=== PATIENT | female | born 1950 | race Caucasian/White ===

== ENCOUNTER 2017-03-08 10:40 | Emergency (ER) | payer MEDICARE ==
--- NOTE | 2017-03-08 11:29 | ERPHSYRPT ---
- History of Present Illness Time Seen by Provider: 03/08/17 11:23 Source: patient, family Exam Limitations: no limitations Patient Subjective Stated Complaint: PT REPORTS UPPER BACK PAIN RADIATING TO CHEST BEGINNING 0630 THIS AM IN THE SHOWER-REPORTS SOB AT TIME BUT NOW IT'S PAINFUL RESP-DENIES DIAPHOSIS Triage Nursing Assessment: PT PALE WARM ET [id number] BREATH SOUNDS NOTED WHILE PT UNABLE TO STOP TALKING-PT VERY TALKATIVE WITH EASE Physician History: Patient is a 66-year-old female with her complaining of an onset of mid to upper back pain while in the shower this morning that began at 6:30 AM or 5 hours ago. It was painful for taking deep breaths. Now it is hurting when she breathes normally. The pain has wrapped around from the back to her front chest. She denies nausea or vomiting. Her past medical history is significant for a cardiac pacer which the patient states is there because she needed something for her heart when she had a bleeding ulcer. Other past medical history is bleeding ulcer, cholecystectomy, appendectomy, hysterectomy, tonsillectomy, total left knee replacement, and eye surgery. Timing/Duration: today, hour(s) (5) Method of Injury: unknown Quality: sharp Back Pain Location: T-spine, paraspinous muscles Severity of Pain-Max: moderate Severity of Pain-Current: moderate Modifying Factors: Improves With: nothing Associated Symptoms: denies symptoms Previous symptoms: no prior history Allergies/Adverse Reactions: Sulfa (Sulfonamide Antibiotics) Allergy (Intermediate, Verified 03/08/17 10:59) morphine Allergy (Unknown, Verified 03/08/17 10:58) Home Medications: Dicyclomine HCl 20 mg [Bentyl 20 mg] 20 mg PO DAILY 03/08/17 [History] Pantoprazole 20 mg [Protonix 20MG Tablet] 20 mg PO DAILY 03/08/17 [History ] Hx Tetanus, Diphtheria Vaccination/Date Given: Yes Hx Influenza Vaccination/Date Given: Yes Hx Pneumococcal Vaccination/Date Given: Yes Immunizations Up to Date: Yes - Review of Systems Constitutional: No Fever, No Chills Eyes: No Symptoms Ears, Nose, & Throat: No Symptoms Respiratory: No Cough, No Dyspnea Cardiac: No Chest Pain, No Edema, No Syncope Abdominal/Gastrointestinal: No Abdominal Pain, No Nausea, No Vomiting, No Diarrhea Genitourinary Symptoms: No Dysuria Musculoskeletal: Back Pain Skin: No Rash Neurological: No Dizziness, No Focal Weakness, No Sensory Changes Psychological: No Symptoms Endocrine: No Symptoms Hematologic/Lymphatic: No Symptoms Immunological/Allergic: No Symptoms All Other Systems: Reviewed and Negative - Past Medical History Pertinent Past Medical History: Yes Neurological History: TIA ENT History: Cataracts, Other Cardiac History: Myocardial Infarction ([place]), Other Respiratory History: Asthma, COPD Endocrine Medical History: No Pertinent History Musculoskeletal History: Arthritis, Osteoporosis GI Medical History: Ulcer History: Other Psycho-Social History: Anxiety, Depression Female Reproductive Disorders: Abnormal Uterine Bleeding Other Medical History: PACEMAKER - Past Surgical History Past Surgical History: Yes Neuro Surgical History: No Pertinent History Cardiac: No Pertinent History, Pacemaker, Other Respiratory: No Pertinent History, Other Gastrointestinal: Appendectomy, Cholecystectomy Musculoskeletal: Orthopedic Surgery, Other Female Surgical History: Hysterectomy, Other Other Surgical History: EYE SURGERY BILAT KNEE SURGERY HAND SURGERY. BERIATRIC SURGERY. bladder tie up x 2. sinus surgery. tonsilectomy. left knee surgery. carpal tunnel surgery. carpel tunnel x 2. patient states she has in surgery before, and has problems waking up from anesthesia - Social History Smoking Status: Never smoker Exposure to second hand smoke: No Drug Use: none Patient Lives Alone: No Significant Family History: no pertinent family hx - Female History Hx Now: No - Nursing Vital Signs Temperature: 98.4 F Temperature Source: Oral Pulse Rate: 60 Respiratory Rate: 20 Pain Intensity: 10 - Physical Exam General Appearance: no apparent distress, alert Eye Exam: PERRL/EOMI, eyes nml inspection Ears, Nose, Throat Exam: normal ENT inspection Neck Exam: normal inspection, non-tender, supple, full range of motion, No meningismus, No midline tenderness Respiratory Exam: normal breath sounds, chest tenderness, lungs clear, No respiratory distress Cardiovascular Exam: regular rate/rhythm, normal heart sounds Gastrointestinal Exam: soft, No tenderness, No mass Pelvic Exam: not done Rectal Exam: not done Back Exam: decreased range of motion, other (Examination of the thorax reveals tenderness to palpation of the mid upper left paraspinous muscle and tenderness of the musculature from the mid back around the left side to the anterior left chest. 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 Comparative CXR 10/29/14.) Ordered Tests: Active Orders 24 hr Category Date Time Status EKG-ER Only STAT Care 03/08/17 11:30 Active IV Insertion STAT Care 03/08/17 11:30 Active CHEST 2 VIEWS (PA AND LAT) Stat Exams 03/08/17 11:30 Taken CBC W DIFF Stat Lab 03/08/17 11:10 Completed CMP Stat Lab 03/08/17 11:10 Completed TROPONIN Stat Lab 03/08/17 11:10 Completed Medication Summary Discontinued Medications Generic Name Dose Route Start Last Admin Trade Name Freq PRN Reason Stop Dose Admin Diazepam 10 mg 03/08/17 11:31 03/08/17 11:38 Valium 10 Mg/2 Ml Syringe IV 03/08/17 11:32 10 mg STAT ONE Administration Diazepam Confirm 03/08/17 11:35 Valium 10 Mg/2 Ml Syringe Administered 03/08/17 11:36 Dose 10 mg .ROUTE .STK-MED ONE Lab/Rad Data: Laboratory Result Diagrams 03/08/17 11:10 03/08/17 11:10 Laboratory Results 03/08/17 03/08/17 Range/Units 11:10 11:10 WBC 7.1 (4.0-10.5) K/mm3 RBC 4.23 (4.1-5.4) M/mm3 Hgb 13.3 (12.0-16.0) gm/dl Hct 40.7 (35-47) % MCV 96.2 (78-100) fl MCH 31.4 (26-32) pg MCHC 32.7 (32-36) g/dl RDW 14.1 H (11.5-14.0) % Plt Count 237 (150-450) K/mm3 MPV 10.2 H (6-9.5) fl Gran % 58.5 (36.0-66.0) % Lymphocytes % 29.0 (24.0-44.0) % Monocytes % 8.3 (0.0-12.0) % Eosinophils % 3.8 (0.00-5.0) % Basophils % 0.4 (0.0-0.4) % Basophils # 0.03 (0-0.4) Sodium 141 (136-145) mEq/L Potassium 4.1 (3.5-5.1) mEq/L Chloride 104 (98-107) mEq/L Carbon Dioxide 27.6 (21-32) mEq/L Anion Gap 13.5 (5-15) MEQ/L BUN 16 (9-20) mg/dL Creatinine 0.99 (0.55-1.30) mg/dl Estimated GFR > 60 ML/MIN Glucose 77 (70-110) MG/DL Calcium 9.1 (8.5-10.1) mg/dL Total Bilirubin 0.4 (0.2-1.0) mg/dL AST 25 (15-37) U/L ALT 31 (12-78) U/L Alkaline Phosphatase 129 H (46-116) U/L Troponin I < 0.017 (0.000-0.056) ng/ml Serum Total Protein 6.7 (6.4-8.2) gm/dL Albumin 3.7 (3.4-5.0) g/dL - Progress Progress: improved, pain not gone completely Counseled pt/family regarding: lab results, diagnosis, rad results - Departure Time of Disposition: 12:55 Departure Disposition: Home Clinical Impression: Musculoskeletal pain Condition: Stable Critical Care Time: No Additional Instructions: You have musculoskeletal pain. The blood tests did not show any problems with your heart. You were given Valium 10 mg IV in the ER with minimal results. You have been given prescriptions for tramadol 50 mg every 4 hours as needed and Flexeril 5 mg every 8 hours as needed. Apply heat or ice to the painful areas. Follow up tomorrow if no improvement. Prescriptions: Cyclobenzaprine HCl [Flexeril] 5 mg PO Q8H PRN PRN #10 tablet PRN Reason: Pain Tramadol HCl 50 mg PO Q4-6HPRN PRN #10 tablet PRN Reason: Pain
[2017-03-08] MEDS ORDERED: VALIUM 10 MG/2 ML SYRINGE IV ONE (11:31)
[2017-03-08] MEDS ORDERED: VALIUM 10 MG/2 ML SYRINGE ONE (11:35)
[2017-03-08 11:37] LABS: BASOPHIL % 0.4 % (0.0-0.4); Eosinophil % 3.8 % (0.00-5.0); Granulocytes % 58.5 % (36.0-66.0); Mean Cell Volume 96.2 fl (78-100); Mean Corpuscular Hemoglobin 31.4 pg (26-32); Mean Platelet Volume 10.2 fl (6-9.5); Monocytes % 8.3 % (0.0-12.0); Platelet Count 237 K/mm3 (150-450); Red Blood Count 4.23 M/mm3 (4.1-5.4); Red Cell Distribution Width 14.1 % (11.5-14.0); White Blood Count 7.1 K/mm3 (4.0-10.5)
[2017-03-08 11:49] LABS: ALBUMIN 3.7 g/dL (3.4-5.0); ALKALINE PHOSPHATASE 129 U/L (46-116); ANION GAP 13.5 MEQ/L (5-15); BILIRUBIN,TOTAL 0.4 mg/dL (0.2-1.0); BLOOD UREA NITROGEN 16 mg/dL (9-20); CHLORIDE 104 mEq/L (98-107); Carbon Dioxide 27.6 mEq/L (21-32); Glucose 77 MG/DL (70-110); Potassium 4.1 mEq/L (3.5-5.1); SGOT/AST 25 U/L (15-37); SGPT/ALT 31 U/L (12-78); SODIUM 141 mEq/L (136-145); Total Protein 6.7 gm/dL (6.4-8.2)
[2017-03-08 11:58] LABS: TROPONIN < 0.017 ng/ml (0.000-0.056)
[2017-03-08 12:21] VITALS: PULSE 60
[2017-03-08 12:37] VITALS: O2SAT 99
[2017-03-08 12:57] VITALS: BP 131/69
--- NOTE | 2017-03-08 21:50 | XRAY ---
Indication: Chest pain and dizziness. Comparison: October 29, 2014. PA/lateral chest again demonstrates normal heart and lungs with left-sided dual-lead pacemaker. Bony thorax intact again with mild osteopenia and degenerative changes. Impression: Stable nonacute chest with chronic features.
== END 2017-03-08 13:06 | disposition home or self-care (01) ==
LOC: ED 10:40
DX: M79.1 Myalgia (principal); M54.6 Pain in thoracic spine; J45.909 Unspecified asthma, uncomplicated; J44.9 Chronic obstructive pulmonary disease, unspecified; M19.90 Unspecified osteoarthritis, unspecified site; M81.0 Age-related osteoporosis without current pathological fracture; Z86.73 Personal history of transient ischemic attack (TIA), and cerebral infarction without residual deficits; F41.8 Other specified anxiety disorders; Z79.899 Other long term (current) drug therapy
CPT/HCPCS: 36000; 36415; 71020; 80053; 84484; 85025; 93005; 96374; 99283; J3360

== ENCOUNTER 2019-01-21 09:23 | Emergency (ER) | payer MEDICARE | END 2019-01-21 12:00 | disposition home or self-care (01) | LOC: ED 09:23 ==

== ENCOUNTER 2021-04-25 05:48 | Emergency (ER) | payer MEDICARE ==
--- NOTE | 2021-04-25 06:27 | ERPHSYRPT ---
- History of Present Illness Historian: patient Exam Limitations: no limitations Patient Subjective Stated Complaint: Pt c/o pain to lower back, RLQ pain and rt hip pain down her leg and then generalized pain from head to toe. Triage Nursing Assessment: pt c/o pain to lower back, RLQ pain and rt hip pain down rt leg but also c/o generalized body pain from head to toe. Abd soft with active bs x4 quad, tender on palpation to RLQ. Timing/Duration: yesterday Activities at Onset: none Quality: sharpness, stabbing Abdominal Pain Onset Location: RLQ Pain Radiation: RLQ Severity of Pain-Max: moderate Severity of Pain-Current: moderate Modifying Factors: Improves With: nothing, urinating Previous symptoms: no prior history Hx Tetanus, Diphtheria Vaccination/Date Given: Yes Hx Influenza Vaccination/Date Given: Yes Hx Pneumococcal Vaccination/Date Given: Yes Immunizations Up to Date: Yes <BRIJESH GOEL - Last Filed: 04/25/21 06:56> <JULIANO ELLER - Last Filed: 04/25/21 10:18> - History of Present Illness Time Seen by Provider: 04/25/21 06:15 Physician History: This is a 70-year-old white female with a history of COPD, asthma, GERD, arrhythmia, ulcer disease, pacemaker placed and hypertension, who presents with first lower lumbar pain followed by radiation and now more localization the right lower quadrant. The pain is significant enough to keep her awake during the night. She states she is never had anything like this before. She has had no nausea vomiting or diarrhea. She has no chest pain and no shortness of breath. The pain is sharp and now nonradiating. Patient has had an appendectomy, cholecystectomy, total abdominal hysterectomy and bilateral salpingo-oophorectomy. She has had bladder suspension surgery twice. She has had urinary tract infections in the past but none in quite a while. (BRIJESH GOEL) Allergies/Adverse Reactions: Sulfa (Sulfonamide Antibiotics) Allergy (Intermediate, Verified 04/25/21 06:13) morphine Allergy (Unknown, Verified 04/25/21 06:13) Home Medications: Pantoprazole 20 mg [Protonix 20MG Tablet] 20 mg PO DAILY 03/08/17 [History] Metoprolol Succinate 25 mg Xl* [Toprol-Xl 25MG Tablets] 50 mg PO BID 01/21/19 [History] estradioL [Estradiol] 2.5 mg PO DAILY 01/21/19 [History] Travel Risk - International Travel Have you traveled outside of the country in past 3 weeks: No If Yes, where;: N - Coronavirus Screening Are you exhibiting any of the following symptoms?: No Close contact with a COVID-19 positive Pt in past 14-21 Days: No - Vaccine Status Have you recieved a Covid-19 vaccination: No Adon: Moderna - Vaccination Dates Date of 2cond Vaccination (if applicable): 03/23/21 <BRIJESH GOEL - Last Filed: 04/25/21 06:56> - Review of Systems Constitutional: No Symptoms Eyes: No Symptoms Ears, Nose, & Throat: No Symptoms Respiratory: No Symptoms Cardiac: No Symptoms Abdominal/Gastrointestinal: Abdominal Pain (Right lower quadrant), No Nausea, No Vomiting, No Diarrhea, No Constipation Genitourinary Symptoms: No Symptoms Musculoskeletal: No Symptoms Skin: No Symptoms Neurological: No Symptoms Psychological: No Symptoms Endocrine: No Symptoms Hematologic/Lymphatic: No Symptoms Immunological/Allergic: No Symptoms All Other Systems: Reviewed and Negative <BRIJESH GOEL - Last Filed: 04/25/21 06:56> - Past Medical History Pertinent Past Medical History: Yes Neurological History: TIA ENT History: Cataracts, Glaucoma, Other Cardiac History: Arrhythmia, Other Respiratory History: Asthma, COPD Endocrine Medical History: No Pertinent History Musculoskeletal History: Osteoporosis GI Medical History: Ulcer History: Other Psycho-Social History: Anxiety, Depression Female Reproductive Disorders: Abnormal Uterine Bleeding Other Medical History: 2 TIAs, seizures, Pacemaker, cardiac arrest, OA and buldging discs in the neck and Lower back, sciatica on rt and lt. - Past Surgical History Past Surgical History: Yes Neuro Surgical History: No Pertinent History Cardiac: Pacemaker, Other Respiratory: No Pertinent History, Other Gastrointestinal: Appendectomy, Cholecystectomy Musculoskeletal: Orthopedic Surgery, Other Female Surgical History: Hysterectomy, Other Other Surgical History: EYE SURGERY BILAT KNEE SURGERY HAND SURGERY. BARIATRIC SURGERY. bladder tie up x 2. sinus surgery. tonsilectomy. left knee surgery. carpal tunnel surgery. carpel tunnel x 2. patient states she has in surgery before, and has problems waking up from anesthesia - Social History Smoking Status: Never smoker Exposure to second hand smoke: Yes Drug Use: none Patient Lives Alone: No Significant Family History: no pertinent family hx - Female History Hx Now: No <BRIJESH GOEL - Last Filed: 04/25/21 06:56> - Physical Exam General Appearance: no apparent distress, alert, anxiety Eye Exam: PERRL/EOMI, eyes nml inspection Ears, Nose, Throat Exam: normal ENT inspection, moist mucous membranes Neck Exam: normal inspection, non-tender, supple, full range of motion Respiratory Exam: normal breath sounds, lungs clear, No chest tenderness, No respiratory distress Cardiovascular Exam: regular rate/rhythm, normal heart sounds, normal peripheral pulses Gastrointestinal/Abdomen Exam: soft, normal bowel sounds, tenderness (Right lower quadrant), guarding, No rebound Pelvic Exam: not done Rectal Exam: not done Back Exam: normal inspection, normal range of motion, vertebral tenderness, other, No CVA tenderness Extremity Exam: normal inspection, normal range of motion, pelvis stable Neurologic Exam: alert, oriented x 3, cooperative, 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, normal mood/affect, nml cerebellar function, nml station & gait, sensation nml Skin Exam: normal color, warm, dry Lymphatic Exam: No adenopathy SpO2 Interpretation: normal SpO2: 99 O2 Delivery: Room Air <BRIJESH GOEL - Last Filed: 04/25/21 06:56> - Nursing Vital Signs Nursing Vital Signs: Initial Vital Signs Temperature 97.9 F 04/25/21 05:57 Pulse Rate 66 04/25/21 05:57 Respiratory Rate 20 04/25/21 05:57 Blood Pressure 162/81 04/25/21 05:57 O2 Sat by Pulse Oximetry 99 04/25/21 05:57 Pain Scale Pain Intensity [] 10 Pain Intensity 4 - Course Nursing assessment & vital signs reviewed: Yes <BRIJESH GOEL - Last Filed: 04/25/21 06:56> - Radiology Exams L-Spine X-ray Interpretation: Teleradiologist Report (Stable minimized multilevel endplate spurring and minimal L4-L5 broad-based disc bulge with bilateral degenerative facet arthropathy. Normal lumbar alignment with vertebral body height and disc height maintained. No compression fractures or subluxations.) - CT Exams Abdomen/Pelvis CT Interpretation: Tele-radiologist Report (Stable right renal cyst, small ventral hernia and chronic bony findings. Right renal cyst. 3.4 cm. Degenerative changes throughout the spine. Stable small midline ventral hernia with herniating omental fat and small bowel loop. ) <JULIANO ELLER - Last Filed: 04/25/21 10:18> Ordered Tests: Active Orders 24 hr Category Date Time Status IV Insertion STAT Care 04/25/21 06:38 Active ABDOMEN AND PELVIS W/0 CONTRAS [CT] Stat Exams 04/25/21 06:38 Completed RECONSTRUCTION [CT] Stat Exams 04/25/21 08:00 Completed AMYLASE Stat Lab 04/25/21 06:50 Completed CBC W DIFF Stat Lab 04/25/21 06:50 Completed CMP Stat Lab 04/25/21 06:50 Completed CULTURE,URINE Stat Lab 04/25/21 07:54 Received LIPASE Stat Lab 04/25/21 06:50 Completed Lactic Acid Stat Lab 04/25/21 06:38 Completed UA W/RFX UR CULTURE Stat Lab 04/25/21 07:54 Ordered Medication Summary Generic Name Dose Route Start Last Admin Trade Name Freq PRN Reason Stop Dose Admin Ceftriaxone Sodium/Dextrose 1 g in 50 mls @ 100 mls/hr 04/25/21 09:52 Rocephin 1 Gm-D5w 50 Ml Bag IV 04/25/21 10:21 STAT ONE Discontinued Medications Generic Name Dose Route Start Last Admin Trade Name Freq PRN Reason Stop Dose Admin Dexamethasone 10 mg 04/25/21 08:15 04/25/21 08:06 Decadron 4 Mg PO 04/25/21 08:16 10 mg STAT ONE Administration Ketorolac Tromethamine 30 mg 04/25/21 07:57 04/25/21 08:05 Toradol 30 Mg Injection IV 04/25/21 07:58 30 mg STAT ONE Administration Ketorolac Tromethamine Confirm 04/25/21 08:03 Toradol 30 Mg Injection Administered 04/25/21 08:04 Dose 30 mg .ROUTE .STK-MED ONE Lab/Rad Data: Laboratory Result Diagrams 04/25/21 06:50 04/25/21 06:50 Laboratory Results 04/25/21 04/25/21 04/25/21 Range/Units 07:54 06:50 06:50 WBC 7.9 (4.0-10.5) K/mm3 RBC 4.03 L (4.1-5.4) M/mm3 Hgb 12.6 (12.0-16.0) gm/dl Hct 39.0 (35-47) % MCV 96.8 (78-100) fl MCH 31.3 (26-32) pg MCHC 32.3 (32-36) g/dl RDW 13.2 (11.5-14.0) % Plt Count 165 (150-450) K/mm3 MPV 9.7 (7.5-11.0) fl Gran % 71.2 H (36.0-66.0) % Eos # (Auto) 0.15 (0-0.5) Absolute Lymphs (auto) 1.42 (1.0-4.6) Absolute Monos (auto) 0.68 (0.0-1.3) Lymphocytes % 18.0 L (24.0-44.0) % Monocytes % 8.6 (0.0-12.0) % Eosinophils % 1.9 (0.00-5.0) % Basophils % 0.3 (0.0-0.4) % Absolute Granulocytes 5.62 (1.4-6.9) Basophils # 0.02 (0-0.4) Sodium 139 (137-145) mmol/L Potassium 4.5 (3.5-5.1) mmol/L Chloride 105 (98-107) mmol/L Carbon Dioxide 30 (22-30) mmol/L Anion Gap 8.1 (5-15) MEQ/L BUN 11 (7-17) mg/dL Creatinine 1.12 H (0.52-1.04) mg/dL Estimated GFR 51.4 ML/MIN Glucose 99 (74-106) mg/dL Lactic Acid (0.4-2.0) Calcium 9.3 (8.4-10.2) mg/dL Total Bilirubin 0.80 (0.2-1.3) mg/dL AST 43 H (14-36) U/L ALT 41 H (0-35) U/L Alkaline Phosphatase 151 H (38-126) U/L Serum Total Protein 6.3 (6.3-8.2) g/dL Albumin 3.8 (3.5-5.0) g/dL Amylase 58 (30-110) U/L Lipase 91 (23-300) U/L Urine Color YELLOW (YELLOW) Urine Appearance SLIGHTLY CLOUDY (CLEAR) Urine pH 5.0 (5-6) Ur Specific Chambers 1.014 (1.005-1.025) Urine Protein NEGATIVE (Negative) Urine Ketones NEGATIVE (NEGATIVE) Urine Blood NEGATIVE (0-5) Gavin/ul Urine Nitrite NEGATIVE (NEGATIVE) Urine Bilirubin NEGATIVE (NEGATIVE) Urine Urobilinogen NEGATIVE (0-1) mg/dL Ur Leukocyte Esterase SMALL (NEGATIVE) Urine WBC (Auto) 26-50 (0-5) /HPF Urine RBC (Auto) 0-2 (0-2) /HPF U Epithel Cells (Auto) RARE (FEW) /HPF Urine Bacteria (Auto) FEW (NEGATIVE) /HPF Urine Mucus (Auto) SLIGHT (NEGATIVE) /HPF Urine Culture Reflexed YES (NO) Urine Glucose NEGATIVE (NEGATIVE) mg/dL 04/25/ Range/Units 06:38 WBC (4.0-10.5) K/mm3 RBC (4.1-5.4) M/mm3 Hgb (12.0-16.0) gm/dl Hct (35-47) % MCV (78-100) fl MCH (26-32) pg MCHC (32-36) g/dl RDW (11.5-14.0) % Plt Count (150-450) K/mm3 MPV (7.5-11.0) fl Gran % (36.0-66.0) % Eos # (Auto) (0-0.5) Absolute Lymphs (auto) (1.0-4.6) Absolute Monos (auto) (0.0-1.3) Lymphocytes % (24.0-44.0) % Monocytes % (0.0-12.0) % Eosinophils % (0.00-5.0) % Basophils % (0.0-0.4) % Absolute Granulocytes (1.4-6.9) Basophils # (0-0.4) Sodium (137-145) mmol/L Potassium (3.5-5.1) mmol/L Chloride (98-107) mmol/L Carbon Dioxide (22-30) mmol/L Anion Gap (5-15) MEQ/L BUN (7-17) mg/dL Creatinine (0.52-1.04) mg/dL Estimated GFR ML/MIN Glucose (74-106) mg/dL Lactic Acid 0.7 (0.4-2.0) Calcium (8.4-10.2) mg/dL Total Bilirubin (0.2-1.3) mg/dL AST (14-36) U/L ALT (0-35) U/L Alkaline Phosphatase (38-126) U/L Serum Total Protein (6.3-8.2) g/dL Albumin (3.5-5.0) g/dL Amylase (30-110) U/L Lipase (23-300) U/L Urine Color (YELLOW) Urine Appearance (CLEAR) Urine pH (5-6) Ur Specific Chambers (1.005-1.025) Urine Protein (Negative) Urine Ketones (NEGATIVE) Urine Blood (0-5) Gavin/ul Urine Nitrite (NEGATIVE) Urine Bilirubin (NEGATIVE) Urine Urobilinogen (0-1) mg/dL Ur Leukocyte Esterase (NEGATIVE) Urine WBC (Auto) (0-5) /HPF Urine RBC (Auto) (0-2) /HPF U Epithel Cells (Auto) (FEW) /HPF Urine Bacteria (Auto) (NEGATIVE) /HPF Urine Mucus (Auto) (NEGATIVE) /HPF Urine Culture Reflexed (NO) Urine Glucose (NEGATIVE) mg/dL - Progress Progress: unchanged Counseled pt/family regarding: lab results, diagnosis, rad results <BRIJESH GOEL - Last Filed: 04/25/21 06:56> <JULIANO ELLER - Last Filed: 04/25/21 10:18> - Progress Progress Note: 04/25/21 06:56 I transferred care of this patient to Dr. Eller at shift change. I reviewed the patient history, pending laboratory and radiographic work-up with him. He accepts patient care. He will make final disposition of this patient. (BRIJESH GOEL) Patient endorsed to Dr. Eller at approximately [address] Eller advised to follow- up on labs and pending CT abdomen pelvis. CT abdomen pelvis reveals incidental right renal cyst and small fatty ventral hernia. Otherwise no acute process. I have requested 3D reconstruction views of the lumbar spine. After examining the patient it appeared that patient may have a radiculopathy. CT 3D reconstruction of lumbar spine reveals endplate spurring and minimal L4-L5 broad-based disc bulge with bilateral degenerative facet arthropathy. It is not clear whether this would cause patient symptoms. However patient reassessed. Pain significantly improved. Patient states he is ready for discharge. Urine still pending at this time. 04/25/21 09:48 04/25/21 09:56 Urinalysis reveals a pyuria. We will treat patient for urinary tract infection. Patient received a 1 g dose of Rocephin. A prescription for Keflex forwarded to patient's pharmacy. Toradol prescription provided. Cultures pending. Patient agrees to follow-up with Dr. Rodrigues next Thursday or Thursday after antibiotic has been given a chance to work. Patient will call today for follow- up appointment. Plan of care discussed with patient. She agrees to follow-up as discussed. Patient feels much better. Pain significantly improved. Patient states he is ready for discharge. Will discharge at this time. (JULIANO ELLER) - Departure Departure Disposition: Home Critical Care Time: No <BRIJESH GOEL - Last Filed: 04/25/21 06:56> <JULIANO ELLER - Last Filed: 04/25/21 10:18> - Departure Clinical Impression: Abdominal pain, Renal cyst, Aortoiliac calcifications, Ventral hernia, Arthritis of spine, L4-L5 broad-based disc bulge, Lumbar facet arthropathy, Pyuria, Urinary tract infection Condition: Stable Referrals: LORENZA RODRIGUES MD [Primary Care Provider] - Additional Instructions: Discharge/Care Plan DAREN NELSON was seen on 04/25/21 in the Emergency Room. The patient was counseled regarding Diagnosis,Lab results, Imaging studies, need for follow up and when to return to the Emergency Room. Prescriptions given: Discharge Note I have spoken with the patient and/or caregivers. I have explained the patient's condition, diagnosis and treatment plan based on the information available to me at this time. I have answered the patient's and/or caregiver's questions and addressed any concerns. The patient and/or caregivers have as good understanding of the patient's diagnosis, condition and treatment plan as can be expected at this point. The vital signs have been stable. The patient's condition is stable and appropriate for discharge from the emergency department. The patient will pursue further outpatient evaluation with the primary care physician or other designated or consulting physician as outlined in the discharge instructions. The patient and/or caregivers are agreeable to this plan of care and follow-up instructions have been explained in detail. The patient and/or caregivers have received these instruction. The patient/and or caregivers are aware that any significant change in condition or worsening of symptoms should prompt an immediate return to this or the closest emergency department or call 911. Prescriptions: Cephalexin Mh 500 mg [Keflex 500 mg] 500 mg PO TID 7 Days #21 capsule Ketorolac Tromethamine [Toradol] 10 mg PO TID 5 Days #15 tablet
[2021-04-25 06:58] LABS: Absolute Neutrophil Ct (ANC) 5.62 (1.4-6.9); BASOPHIL % 0.3 % (0.0-0.4); Basophil (Absolute #) 0.02 (0-0.4); Eosinophil % 1.9 % (0.00-5.0); Eosinophil (Absolute #) 0.15 (0-0.5); Hemoglobin 12.6 gm/dl (12.0-16.0); Lymphocyte (Absolute #) 1.42 (1.0-4.6); Mean Cell Volume 96.8 fl (78-100); Mean Corpuscular Hemoglobin 31.3 pg (26-32); Mean Corpuscular Hgb Concent. 32.3 g/dl (32-36); Mean Platelet Volume 9.7 fl (7.5-11.0); Monocyte (Absolute #) 0.68 (0.0-1.3); Monocytes % 8.6 % (0.0-12.0); Neutrophil % 71.2 % (36.0-66.0); Platelet Count 165 K/mm3 (150-450); Red Blood Count 4.03 M/mm3 (4.1-5.4); Red Cell Distribution Width 13.2 % (11.5-14.0); White Blood Count 7.9 K/mm3 (4.0-10.5)
[2021-04-25 07:05] LABS: ALBUMIN 3.8 g/dL (3.5-5.0); ANION GAP 8.1 MEQ/L (5-15); BILIRUBIN,TOTAL 0.8 mg/dL (0.2-1.3); Calcium 9.3 mg/dL (8.4-10.2); Creatinine 1 1.12 mg/dL (0.52-1.04); EST GLOMERULAR FILTRATION RATE 51.4 ML/MIN; Potassium 4.5 mmol/L (3.5-5.1); Total Protein 6.3 g/dL (6.3-8.2)
[2021-04-25] MEDS ORDERED: TORAdol 30 mg Injection IV ONE (07:57)
[2021-04-25] MEDS ORDERED: DECADRON 10MG INJ. PO ONE (07:57)
[2021-04-25] MEDS ORDERED: TORAdol 30 mg Injection ONE (08:03)
[2021-04-25] MEDS ORDERED: Decadron 4 MG PO ONE (08:15)
--- NOTE | 2021-04-25 09:16 | XRAY ---
Indication: Right lower quadrant and right low back pain. Multiple contiguous images obtained through the abdomen and pelvis without contrast. Comparison: May 10, 2018. Lung bases again demonstrates mild bibasilar fibrosis/scarring. No infiltrate or effusion. Heart is not enlarged again with pacer leads. Again previous gastric bypass surgery, cholecystectomy, appendectomy, and hysterectomy. Noncontrasted stomach and bowel loops nonobstructed. Radiopacity in the right hemicolon presumed ingested medication, bismuth, or barium. No free fluid/air. Stable 3.4 cm right lower pole renal cyst. Remaining liver, pancreas, spleen, adrenal glands, kidneys, ureters, and bladder are unremarkable for noncontrast exam. Stable minimal aortoiliac calcifications without AAA. Osseous structures intact again with minimal degenerative changes throughout the spine. Stable small midline ventral hernia was slightly herniating omental fat and small bowel loop. Impression: 1. Stable right renal cyst, small ventral hernia, and chronic bony findings. 2. Remaining CT abdomen/pelvis without contrast exam is again negative.
--- NOTE | 2021-04-25 09:20 | XRAY ---
Indication: Low back pain. Sagittal, coronal, and axial reconstructed images of the lumbar spine obtained using the raw data from the CT abdomen/pelvis of the same day. Comparison: September 09, 2018. Axial images again negative for acute fracture, suspicious bony lesions, or spinal canal stenosis. Stable minimal/mild multilevel endplate spurring and minimal L4-L5 broad-based disc bulge with bilateral degenerative facet arthropathy. Sagittal and coronal reformatted images again demonstrates normal lumbar alignment with vertebral body heights/disc spaces maintained. No acute compression fracture or subluxation. CT abdomen/pelvis reported separately. Impression: Stable multilevel degenerative changes again without large disc herniation or canal stenosis.
[2021-04-25 09:42] VITALS: O2SAT 98
[2021-04-25 09:44] LABS: Appearance SLIGHTLY CLOUDY (CLEAR); Bacteria FEW /HPF (NEGATIVE); Bilirubin NEGATIVE (NEGATIVE); Blood NEGATIVE Ery/ul (0-5); Epithelial Cells RARE /HPF (FEW); Glucose NEGATIVE (NEGATIVE); Ketones NEGATIVE (NEGATIVE); Leukocyte Esterase SMALL (NEGATIVE); Mucus SLIGHT /HPF (NEGATIVE); Nitrite NEGATIVE (NEGATIVE); Protein,Urine Dip NEGATIVE (Negative); RBC 0-2 /HPF (0-2); Specific Gravity 1.014 (1.005-1.025); Urobilinogen NEGATIVE mg/dL (0-1); WBC 26-50 /HPF (0-5)
[2021-04-25] MEDS ORDERED: ROCEPHIN 1 Gm-D5w 50 ml Bag** 1 G/50 ML IVPB IV ONE ×2 (09:52→09:54)
[2021-04-25 10:51] VITALS: BP 138/60; PULSE 68
== END 2021-04-25 10:52 | disposition home or self-care (01) ==
LOC: ED 05:48
DX: R10.9 Unspecified abdominal pain (principal); N28.1 Cyst of kidney, acquired; I70.0 Atherosclerosis of aorta; K43.9 Ventral hernia without obstruction or gangrene; M47.9 Spondylosis, unspecified; R82.81 Pyuria; N39.0 Urinary tract infection, site not specified
CPT/HCPCS: 36000; 36415; 74176; 76376; 80053; 81001; 82150; 83605; 83690; 85025; 87077; 87086; 87186; 96365; 96374; 99284; J0696; J1885; A9270-GY

== ENCOUNTER 2021-05-29 16:02 | Emergency (ER) | payer MEDICARE ==
--- NOTE | 2021-05-29 17:54 | ERPHSYRPT ---
- History of Present Illness Time Seen by Provider: 05/29/21 16:25 Source: patient Exam Limitations: no limitations Patient Subjective Stated Complaint: fall today on sidewalk Triage Nursing Assessment: pt to ED c/o fall today. pt tripped on sidewalk today and landed on R side and back. now c/o back pain and R side trunk pain 9/10. pt tearful and slow to move when getting into bed. ambulatory with no assist with steady gate but slow d/t pain. did not hit head or lose consciousness during fall. Physician History: Patient is a 71-year-old female presents to our emergency department for evaluation of right rib pain in the left buttock pain. Patient states she was at home walking outdoors when she tripped on her sidewalk. Patient states she was wearing flip-flops which caused her to trip. Patient fell towards her right ribs and on her left buttock. Pain described as an ache that is localized to her right rib and left buttock. No radiation. Pain reproduced with movement and palpation. Pain improves with rest. No BHT or LOC. No neck pain. Cervical spine cleared clinically. Pain rated 9 out of 10. However patient declined pain medication because she is comfortable at rest. Patient advised to inform us if she changes her mind and pain medication. Patient voices no other complaints concerns at this time. Occurred: just prior to arrival Reason for Fall: tripped Injuries/Pain Location: chest Loss of Consciousness: no loss of consciousness Quality: aching Severity of Pain-Max: moderate Severity of Pain-Current: mild Modifying Factors: Improves With: movement Associated Symptoms (Fall): denies symptoms, No chest pain, No dizziness, No headache, No lightheadedness, No muscle spasms, No nausea, No neck pain, No ringing in ears, No seizures, No shortness of breath, No slurred speech, No trouble walking, No vomiting, No vision changes Allergies/Adverse Reactions: Sulfa (Sulfonamide Antibiotics) Allergy (Intermediate, Verified 05/29/21 16:27) morphine Allergy (Unknown, Verified 05/29/21 16:27) Home Medications: Pantoprazole 20 mg [Protonix 20MG Tablet] 20 mg PO DAILY 03/08/17 [History] Metoprolol Succinate 25 mg Xl* [Toprol-Xl 25MG Tablets] 50 mg PO BID 01/21/19 [History] estradioL [Estradiol] 2.5 mg PO DAILY 01/21/19 [History] Hx Tetanus, Diphtheria Vaccination/Date Given: Yes Hx Influenza Vaccination/Date Given: Yes Hx Pneumococcal Vaccination/Date Given: Yes Immunizations Up to Date: Yes Travel Risk - International Travel Have you traveled outside of the country in past 3 weeks: No - Coronavirus Screening Are you exhibiting any of the following symptoms?: No Close contact with a COVID-19 positive Pt in past 14-21 Days: No - Vaccine Status Have you recieved a Covid-19 vaccination: 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 - Vaccination Dates Date of 2cond Vaccination (if applicable): 03/23/21 - Review of Systems Constitutional: No Symptoms, No Fever, No Chills Eyes: No Symptoms Ears, Nose, & Throat: No Symptoms Respiratory: No Symptoms, No Cough, No Dyspnea Cardiac: No Symptoms, No Chest Pain, No Edema, No Syncope Abdominal/Gastrointestinal: No Symptoms, No Abdominal Pain, No Nausea, No Vomiting, No Diarrhea Genitourinary Symptoms: No Symptoms, No Dysuria Musculoskeletal: No Symptoms, No Back Pain, No Neck Pain Skin: No Symptoms, No Rash Neurological: No Symptoms, No Dizziness, No Focal Weakness, No Sensory Changes Psychological: No Symptoms Endocrine: No Symptoms Hematologic/Lymphatic: No Symptoms Immunological/Allergic: No Symptoms All Other Systems: Reviewed and Negative - Past Medical History Pertinent Past Medical History: Yes Neurological History: TIA ENT History: Cataracts, Glaucoma, Other Cardiac History: Arrhythmia, Other Respiratory History: Asthma, COPD Endocrine Medical History: No Pertinent History Musculoskeletal History: Osteoporosis GI Medical History: Ulcer History: Other Psycho-Social History: Anxiety, Depression Female Reproductive Disorders: Abnormal Uterine Bleeding Other Medical History: 2 TIAs, seizures, Pacemaker, cardiac arrest, OA and buldging discs in the neck and Lower back, sciatica on rt and lt. - Past Surgical History Past Surgical History: Yes Neuro Surgical History: No Pertinent History Cardiac: Pacemaker, Other Respiratory: No Pertinent History, Other Gastrointestinal: Appendectomy, Cholecystectomy Musculoskeletal: Joint Replacement, Orthopedic Surgery, Other Female Surgical History: Hysterectomy, Other Other Surgical History: EYE SURGERY L KNEE SURGERY/replacement HAND SURGERY. BARIATRIC SURGERY. bladder tie up x 2. sinus surgery. tonsilectomy. left knee surgery. carpal tunnel surgery. carpel tunnel x 2. patient states she has in surgery before, and has problems waking up from anesthesia - Social History Smoking Status: Never smoker Exposure to second hand smoke: Yes Drug Use: none Patient Lives Alone: No Significant Family History: no pertinent family hx - Female History Hx Now: No - Nursing Vital Signs Nursing Vital Signs: Initial Vital Signs Temperature 96.8 F 05/29/21 16:18 Pulse Rate 60 05/29/21 16:18 Respiratory Rate 18 05/29/21 16:18 Blood Pressure 157/83 05/29/21 16:18 O2 Sat by Pulse Oximetry 98 05/29/21 16:18 Pain Scale Pain Intensity 8 - Salome Coma Score Best Eye Response (Salome): (4) open spontaneously Best Verbal Response (Salome): (5) oriented Best Motor Response (Salome): (6) obeys commands Salome Total: 15 - Physical Exam General Appearance: no apparent distress, alert, other (Patient has pain at her right ribs with movement. Patient has pain on the left buttock but is sitting comfortably.) Head Injury: no evidence of injury, No active bleeding, No Levy's Sign, No contusions Eye Exam: PERRL/EOMI, eyes nml inspection, No scleral icterus, No pale conjunctivae ENT Exam: airway nml, evidence of ENT injury, No dental injury Neck Exam: supple, trachea midline, full range of motion, normal alignment, normal inspection, No tenderness Respiratory/Chest Exam: chest tenderness, normal breath sounds, other (To right ribs 5 6 and 7 laterally. No pain at the anterior lower ribs. No pain at the right upper quadrant or left upper quadrant.), No respiratory distress Cardiovascular Exam: normal heart sounds, regular rate/rhythm Gastrointestinal Exam: soft, No tenderness, No distention, No guarding, No ecchymosis Genitalia Exam: normal genital exam Back Exam: normal inspection, No vertebral tenderness Extremity Exam: normal inspection, normal range of motion, pelvis stable, No deformities Peripheral Pulses: dorsalis-pedis (R): 2+, dorsalis-pedis (L): 2+ Neurologic Exam: alert, oriented x 3, cooperative, sensation nml, No motor deficits Skin Exam: normal color, warm, dry SpO2 Interpretation: normal SpO2: 95 O2 Delivery: Room Air - Course Nursing assessment & vital signs reviewed: Yes EKG Interpreted by Me: RATE (60 paced rhythm. AG similar to the previous EKG performed on 2018.) - Radiology Exams Ribs X-ray Interpretation: Teleradiologist Report (Comparison. Negative ribs no fractures.) Chest X-ray Interpretation: Interpreted by me (Heart and lungs with left pacemaker observed. Thorax intact. Mild osteopenia. No acute cardiopulmonary process.) Pelvis X-ray Interpretation: Interpreted by me (Katerin, no fractures or dislocations. No soft tissue abnormalities. Chronic changes) Ordered Tests: Active Orders 24 hr Category Date Time Status EKG-ER Only STAT Care 05/29/21 17:27 Active CHEST 1 VIEW (PORTABLE) Stat Exams 05/29/21 17:25 Taken PELVIS (1 OR 2 VIEWS) Stat Exams 05/29/21 17:27 Taken RIBS UNILATERAL Stat Exams 05/29/21 17:25 Taken Medication Summary Discontinued Medications Generic Name Dose Route Start Last Admin Trade Name Freq PRN Reason Stop Dose Admin Hydrocodone Bitart/Acetaminophen 1 tab 05/29/21 18:40 05/29/21 18:42 Frederick 5/325 Mg PO 05/29/21 18:41 1 tab STAT ONE Administration Hydrocodone Bitart/Acetaminophen Confirm 05/29/21 18:42 Frederick 5/325 Mg Administered 05/29/21 18:43 Dose 1 tab .ROUTE .STK-MED ONE - Progress Progress: improved Progress Note: Patient reassessed. She feels well. Pain significantly improved. X-rays are negative for fractures dislocations. Patient pain significantly improved with Frederick, we will give patient several Frederick pills for home. Patient agrees to follow-up with her primary care doctor within 48 hours for reevaluation. 05/29/21 19:23 Counseled pt/family regarding: lab results, diagnosis, need for follow-up, rad results - Departure Clinical Impression: Osteopenia, Fall, Rib contusion, Contusion, buttock Condition: Stable Critical Care Time: No Referrals: LORENZA NOYOLA MD [Primary Care Provider] - Additional Instructions: Discharge/Care Plan DAREN NELSON was seen on 05/29/21 in the Emergency Room. The patient was counseled regarding Diagnosis,Lab results, Imaging studies, need for follow up and when to return to the Emergency Room. Prescriptions given: Discharge Note I have spoken with the patient and/or caregivers. I have explained the patient's condition, diagnosis and treatment plan based on the information available to me at this time. I have answered the patient's and/or caregiver's questions and addressed any concerns. The patient and/or caregivers have as good understanding of the patient's diagnosis, condition and treatment plan as can be expected at this point. The vital signs have been stable. The patient's condition is stable and appropriate for discharge from the emergency department. The patient will pursue further outpatient evaluation with the primary care physician or other designated or consulting physician as outlined in the discharge instructions. The patient and/or caregivers are agreeable to this plan of care and follow-up instructions have been explained in detail. The patient and/or caregivers have received these instruction. The patient/and or caregivers are aware that any significant change in condition or worsening of symptoms should prompt an immediate return to this or the closest emergency department or call 911.
[2021-05-29] MEDS ORDERED: NORCO 5/325 MG PO ONE ×2 (18:40→19:25)
[2021-05-29] MEDS ORDERED: NORCO 5/325 MG ONE ×2 (18:42→19:28)
[2021-05-29 19:25] VITALS: BP 147/72; PULSE 69
[2021-05-29 19:27] VITALS: O2SAT 95
--- NOTE | 2021-05-30 08:36 | XRAY ---
Indication: Pain following fall. Comparison: None 2 view right ribs negative for acute fracture, suspicious bony lesions, or soft tissue abnormalities. Age related osteopenia. Chest reported separately.
--- NOTE | 2021-05-30 08:38 | XRAY ---
Indication: Pain following fall. Comparison: None AP pelvis demonstrates mild osteopenia, mild lower lumbar degenerative spondylosis, small bilateral superior acetabular spurring, mild scattered fecal debris, left mid abdomen suture material, and pelvic surgical clips. No other bony, articular, or soft tissue abnormalities.
--- NOTE | 2021-05-30 08:46 | XRAY ---
Indication: Right-sided pain following fall. Comparison: August 13, 2020. Portable chest again demonstrates normal heart and lungs with incidental left pacemaker/leads. Bony thorax intact again with mild osteopenia and degenerative changes. No new/acute findings.
== END 2021-05-29 19:36 | disposition home or self-care (01) ==
LOC: ED 16:02
DX: M85.80 Other specified disorders of bone density and structure, unspecified site (principal); S20.219A Contusion of unspecified front wall of thorax, initial encounter; S30.0XXA Contusion of lower back and pelvis, initial encounter; W01.0XXA Fall on same level from slipping, tripping and stumbling without subsequent striking against object, initial encounter; Y93.01 Activity, walking, marching and hiking; Y92.480 Sidewalk as the place of occurrence of the external cause; Z79.899 Other long term (current) drug therapy; J44.9 Chronic obstructive pulmonary disease, unspecified; Z93.0 Tracheostomy status; Z95.0 Presence of cardiac pacemaker; M81.0 Age-related osteoporosis without current pathological fracture
CPT/HCPCS: 71045; 71100; 72170; 93005; 99284; A9270-GY

== ENCOUNTER 2022-04-06 00:25 | Emergency (ER) | payer MEDICARE ==
[2022-04-06] MEDS ORDERED: Hydromorphone 1 mg/ml Injection IV ONE ×3 (00:43→04:27)
[2022-04-06] MEDS ORDERED: Zofran 4 MG/2 ML VIAL IV ONE (00:43)
--- NOTE | 2022-04-06 00:46 | ERPHSYRPT ---
- History of Present Illness Time Seen by Provider: 04/06/22 00:31 Historian: patient Exam Limitations: no limitations Physician History: 71-year-old female presented in the ER with chief complaint of generalized abdominal pain. Patient reports it started around suppertime with pain on the right side then across abdomen with some radiation to the back moderate to jorge re sharp without any significant aggravating or relieving factors. Denies associated nausea vomiting diarrhea. Did have a bowel movement this morning. Took Gas-X at home which does not seem working. Timing/Duration: yesterday, constant, gradual onset, worse Activities at Onset: rest Quality: sharpness Abdominal Pain Onset Location: generalized abdomen Pain Radiation: no radiation Severity of Pain-Max: severe Severity of Pain-Current: severe Modifying Factors: Improves With: nothing Associated Symptoms: denies symptoms Previous symptoms: no prior history Allergies/Adverse Reactions: Sulfa (Sulfonamide Antibiotics) Allergy (Intermediate, Verified 04/06/22 00:49) morphine Allergy (Unknown, Verified 04/06/22 00:49) Home Medications: Pantoprazole 20 mg [Protonix 20MG Tablet] 40 mg PO DAILY 03/08/17 [History] estradioL [Estradiol] 0.5 mg PO DAILY 01/21/19 [History] Amox Tr/Potass Clav. 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 - Vaccination Dates Date of 2cond Vaccination (if applicable): 03/23/21 - Review of Systems Constitutional: No Symptoms Eyes: No Symptoms Ears, Nose, & Throat: No Symptoms Respiratory: No Symptoms Cardiac: No Symptoms Abdominal/Gastrointestinal: Abdominal Pain Genitourinary Symptoms: No Symptoms Musculoskeletal: No Symptoms Skin: No Symptoms Neurological: No Symptoms Psychological: No Symptoms Endocrine: No Symptoms Hematologic/Lymphatic: No Symptoms - Past Medical History Pertinent Past Medical History: Yes Neurological History: TIA ENT History: Cataracts, Glaucoma, Other Cardiac History: Arrhythmia, Other Respiratory History: Asthma, COPD Endocrine Medical History: No Pertinent History Musculoskeletal History: Osteoporosis GI Medical History: Ulcer History: Other Psycho-Social History: Anxiety, Depression Female Reproductive Disorders: Abnormal Uterine Bleeding Other Medical History: 2 TIAs, seizures, Pacemaker, cardiac arrest, OA and buldging discs in the neck and Lower back, sciatica on rt and lt. - Past Surgical History Past Surgical History: Yes Neuro Surgical History: No Pertinent History Cardiac: Pacemaker, Other Respiratory: No Pertinent History, Other Gastrointestinal: Appendectomy, Cholecystectomy Musculoskeletal: Joint Replacement, Orthopedic Surgery, Other Female Surgical History: Hysterectomy, Other Other Surgical History: EYE SURGERY L KNEE SURGERY/replacement HAND SURGERY. BARIATRIC SURGERY. bladder tie up x 2. sinus surgery. tonsilectomy. left knee surgery. carpal tunnel surgery. carpel tunnel x 2. patient states she has in surgery before, and has problems waking up from anesthesia - Social History Smoking Status: Never smoker Exposure to second hand smoke: Yes Drug Use: none Patient Lives Alone: No Significant Family History: no pertinent family hx - Nursing Vital Signs Nursing Vital Signs: Initial Vital Signs Temperature 97.8 F 04/06/22 00:36 Pulse Rate 62 04/06/22 00:36 Respiratory Rate 16 04/06/22 00:36 Blood Pressure 144/90 04/06/22 00:36 O2 Sat by Pulse Oximetry 98 04/06/22 00:36 Pain Scale Pain Intensity 9 - Physical Exam General Appearance: no apparent distress, alert Eye Exam: PERRL/EOMI Ears, Nose, Throat Exam: normal ENT inspection Neck Exam: normal inspection, supple, full range of motion Respiratory Exam: normal breath sounds, lungs clear Cardiovascular Exam: regular rate/rhythm, normal heart sounds Gastrointestinal/Abdomen Exam: soft, normal bowel sounds, tenderness Back Exam: normal inspection, normal range of motion Extremity Exam: normal inspection, normal range of motion Neurologic Exam: alert, oriented x 3, cooperative Skin Exam: normal color SpO2 Interpretation: normal SpO2: 96 O2 Delivery: Room Air Ordered Tests: Active Orders 24 hr Category Date Time Status IV Insertion STAT Care 04/06/22 00:43 Active NPO (ED) STAT Care 04/06/22 00:43 Active ABDOMEN AND PELVIS W/0 CONTRAS [CT] Stat Exams 04/06/22 00:43 Taken CBC W DIFF Stat Lab 04/06/22 00:52 Completed CMP Stat Lab 04/06/22 00:52 Completed LIPASE Stat Lab 04/06/22 00:52 Completed Lactic Acid Stat Lab 04/06/22 04:35 Completed TROPONIN Q3H Lab 04/06/22 00:52 Completed TROPONIN Q3H Lab 04/06/22 03:58 Completed TROPONIN Q3H Lab 04/06/22 06:45 Ordered TROPONIN Q3H Lab 04/06/22 09:45 Ordered TROPONIN Q3H Lab 04/06/22 12:45 Ordered UA W/RFX CULTURE Stat Lab 04/06/22 Ordered Medication Summary Generic Name Dose Route Start Last Admin Trade Name Freq PRN Reason Stop Dose Admin Sodium Chloride 1,000 mls @ 125 mls/hr 04/06/22 02:30 04/06/22 02:43 Sodium Chloride 0.9% 1000 Ml IV 05/06/22 02:29 125 mls/hr .Q8H JOIE Administration Discontinued Medications Generic Name Dose Route Start Last Admin Trade Name Freq PRN Reason Stop Dose Admin Hydromorphone HCl 0.5 mg 04/06/22 00:43 04/06/22 00:54 Hydromorphone 1 Mg/1ml Inj 1 Mg/Ml Syringe IV 04/06/22 00:44 0.5 mg STAT ONE Administration Hydromorphone HCl Confirm 04/06/22 00:52 Hydromorphone 1 Mg/1ml Inj 1 Mg/Ml Syringe Administered 04/06/22 00:53 Dose 1 mg .ROUTE .STK-MED ONE Hydromorphone HCl 0.5 mg 04/06/22 02:19 04/06/22 02:42 Hydromorphone 1 Mg/1ml Inj 1 Mg/Ml Syringe IV 04/06/22 02:20 0.5 mg STAT ONE Administration Hydromorphone HCl Confirm 04/06/22 02:39 Hydromorphone 1 Mg/1ml Inj 1 Mg/Ml Syringe Administered 04/06/22 02:40 Dose 1 mg .ROUTE .STK-MED ONE Hydromorphone HCl Confirm 04/06/22 04:21 Hydromorphone 1 Mg/1ml Inj 1 Mg/Ml Syringe Administered 04/06/22 04:22 Dose 1 mg .ROUTE .STK-MED ONE Ondansetron HCl 4 mg 04/06/22 00:43 04/06/22 00:54 Ondansetron Hcl 4 Mg/2 Ml Vial IV 04/06/22 00:44 4 mg STAT ONE Administration Ondansetron HCl Confirm 04/06/22 00:51 Ondansetron Hcl 4 Mg/2 Ml Vial Administered 04/06/22 00:52 Dose 4 mg .ROUTE .STK-MED ONE Lab/Rad Data: Laboratory Result Diagrams 04/06/22 00:52 04/06/22 00:52 Laboratory Results 04/06/22 04/06/22 04/06/22 Range/Units 04:35 03:58 00:52 WBC (4.0-10.5) x10^3/uL RBC (4.1-5.4) x10^6/uL Hgb (12.0-16.0) g/dL Hct (35-47) % MCV (78-100) fL MCH (26-32) pg MCHC (32-36) g/dL RDW (11.5-14.0) % Plt Count (150-450) x10^3/uL MPV (7.5-11.0) fL Gran % (36.0-66.0) % Immature Gran % (Auto) (0.00-0.4) % Nucleat RBC Rel Count (0.00-0.1) % Eos # (Auto) (0-0.5) x10^3/uL Immature Gran # (Auto) (0.00-0.03) x10^3u/L Absolute Lymphs (auto) (1.0-4.6) x10^3/uL Absolute Monos (auto) (0.0-1.3) x10^3/uL Absolute Nucleated RBC (0.00-0.01) x10^3u/L Lymphocytes % (24.0-44.0) % Monocytes % (0.0-12.0) % Eosinophils % (0.00-5.0) % Basophils % (0.0-0.4) % Absolute Granulocytes (1.4-6.9) x10^3/uL Basophils # (0-0.4) x10^3/uL Sodium (137-145) mmol/L Potassium (3.5-5.1) mmol/L Chloride (98-107) mmol/L Carbon Dioxide (22-30) mmol/L Anion Gap (5-15) MEQ/L BUN (7-17) mg/dL Creatinine (0.52-1.04) mg/dL Estimated GFR ML/MIN Glucose (74-106) mg/dL Lactic Acid 1.0 (0.4-2.0) Calcium (8.4-10.2) mg/dL Total Bilirubin (0.2-1.3) mg/dL AST (14-36) U/L ALT (0-35) U/L Alkaline Phosphatase (38-126) U/L Troponin I < 0.012 < 0.012 (0.000-0.034) ng/mL Serum Total Protein (6.3-8.2) g/dL Albumin (3.5-5.0) g/dL Lipase (23-300) U/L 04/06/22 04/06/22 Range/Units 00:52 00:52 WBC 8.9 (4.0-10.5) x10^3/uL RBC 4.30 (4.1-5.4) x10^6/uL Hgb 13.7 (12.0-16.0) g/dL Hct 41.7 (35-47) % MCV 97.0 (78-100) fL MCH 31.9 (26-32) pg MCHC 32.9 (32-36) g/dL RDW 13.1 (11.5-14.0) % Plt Count 235 (150-450) x10^3/uL MPV 10.0 (7.5-11.0) fL Gran % 62.1 (36.0-66.0) % Immature Gran % (Auto) 0.3 (0.00-0.4) % Nucleat RBC Rel Count 0.0 (0.00-0.1) % Eos # (Auto) 0.18 (0-0.5) x10^3/uL Immature Gran # (Auto) 0.03 (0.00-0.03) x10^3u/L Absolute Lymphs (auto) 2.46 (1.0-4.6) x10^3/uL Absolute Monos (auto) 0.65 (0.0-1.3) x10^3/uL Absolute Nucleated RBC 0.00 (0.00-0.01) x10^3u/L Lymphocytes % 27.8 (24.0-44.0) % Monocytes % 7.3 (0.0-12.0) % Eosinophils % 2.0 (0.00-5.0) % Basophils % 0.5 (0.0-0.4) % Absolute Granulocytes 5.49 (1.4-6.9) x10^3/uL Basophils # 0.04 (0-0.4) x10^3/uL Sodium 139 (137-145) mmol/L Potassium 4.8 (3.5-5.1) mmol/L Chloride 100 (98-107) mmol/L Carbon Dioxide 30 (22-30) mmol/L Anion Gap 13.9 (5-15) MEQ/L BUN 19 H (7-17) mg/dL Creatinine 1.19 H (0.52-1.04) mg/dL Estimated GFR 47.8 ML/MIN Glucose 100 (74-106) mg/dL Lactic Acid (0.4-2.0) Calcium 10.3 H (8.4-10.2) mg/dL Total Bilirubin 0.60 (0.2-1.3) mg/dL AST 34 (14-36) U/L ALT 30 (0-35) U/L Alkaline Phosphatase 111 (38-126) U/L Troponin I (0.000-0.034) ng/mL Serum Total Protein 7.0 (6.3-8.2) g/dL Albumin 4.3 (3.5-5.0) g/dL Lipase 164 (23-300) U/L - Progress Progress: improved, pain not gone completely, re-examined Progress Note: 04/06/22 02:22 She is given symptomatic treatment for pain, on reevaluation feeling better but still has discomfort. Has normal white count, grossly unremarkable chemistries, CT showed small bowel obstruction with a transition point in the mid abdomen distal to the jejunojejunostomy. Patient does have history of bariatric surgery with [facility]лен[facility]-en-[facility] at [place]. She is not nauseated or vomiting and does not require an NG intubation. We will keep her n.p.o., hydration and [place] transfer center is called. 04/06/22 03:31 I have spoken with Dr. Chaney internal medicine and then with Dr. Knight general surgery, reviewed history and work-up, patient is excepted per general surgery. Plan discussed with patient to understand and agrees with it. Discussed with Dr.: Other Counseled pt/family regarding: lab results, diagnosis, rad results - Departure Departure Disposition: Transfer Clinical Impression: Small bowel obstruction Condition: Stable Critical Care Time: No Referrals: JOHANNA LOVE NP [Primary Care Provider] - Follow up/PCP as directed
[2022-04-06] MEDS ORDERED: Zofran 4 MG/2 ML VIAL ONE (00:51)
[2022-04-06] MEDS ORDERED: Hydromorphone 1 mg/ml Injection ONE ×4 (00:52→07:01)
[2022-04-06 00:55] LABS: Absolute Neutrophil Ct (ANC) 5.49 x10^3/uL (1.4-6.9); Basophil (Absolute #) 0.04 x10^3/uL (0-0.4); Eosinophil (Absolute #) 0.18 x10^3/uL (0-0.5); Hematocrit 41.7 % (35-47); Hemoglobin 13.7 g/dL (12.0-16.0); Lymphocyte (Absolute #) 2.46 x10^3/uL (1.0-4.6); Lymphocytes % 27.8 % (24.0-44.0); Mean Corpuscular Hemoglobin 31.9 pg (26-32); Mean Corpuscular Hgb Concent. 32.9 g/dL (32-36); Monocyte (Absolute #) 0.65 x10^3/uL (0.0-1.3); Monocytes % 7.3 % (0.0-12.0); Neutrophil % 62.1 % (36.0-66.0); Platelet Count 235 x10^3/uL (150-450); Red Cell Distribution Width 13.1 % (11.5-14.0); White Blood Count 8.9 x10^3/uL (4.0-10.5)
[2022-04-06 01:07] LABS: ALBUMIN 4.3 g/dL (3.5-5.0); ANION GAP 13.9 MEQ/L (5-15); BILIRUBIN,TOTAL 0.6 mg/dL (0.2-1.3); Calcium 10.3 mg/dL (8.4-10.2); Creatinine 1 1.19 mg/dL (0.52-1.04); EST GLOMERULAR FILTRATION RATE 47.8 ML/MIN; Potassium 4.8 mmol/L (3.5-5.1)
[2022-04-06] MEDS ORDERED: Sodium Chloride 0.9% 1000 ML 1,000 ML IV SCH (02:30)
[2022-04-06] MEDS ORDERED: Sodium Chloride 0.9% 1000 ML 1,000 ML ONE (02:40)
[2022-04-06 07:23] VITALS: BP 125/71; PULSE 67; O2SAT 97
--- NOTE | 2022-04-06 07:53 | XRAY ---
Indication: Abdomen pain. Multiple contiguous axial images obtained through the abdomen and pelvis without contrast. Comparison: April 25, 2021. Lung bases again demonstrates mild bibasilar fibrosis/scarring without infiltrate or effusion. Heart not enlarged again with pacer leads. Again previous gastric bypass surgery, cholecystectomy, appendectomy, and hysterectomy. Stomach is distended with food/fluid. Noncontrasted stomach stomach appears nonobstructed. Left midabdomen now demonstrates distended small bowel up to 5 cm accident anastomosis concerning for partial small bowel obstruction. There is distal colonic bowel gas. No free fluid/air. New mild/moderate diffuse scattered colonic fecal debris throughout. Stable right lower renal cyst and splenic calcified granuloma. Remaining liver, pancreas, spleen, adrenal glands, kidneys, ureters, and bladder are unremarkable for noncontrast exam. Again minimal aortoiliac calcifications without AAA. Osseous structures intact again with minimal generative changes throughout the spine. Stable small midline supraumbilical ventral hernia with slightly herniating omental fat and small bowel loop. Impression: 1. New left midabdomen distended small bowel loop at the anastomosis concerning for partial small bowel obstruction. No free fluid/air. 2. New diffuse fecal stasis. 3. Stable right renal cyst, small ventral hernia, and chronic bony findings. Comment: Preliminary interpretation made by [facility] [place]. No critical discrepancy.
== END 2022-04-06 07:12 | disposition short-term general hospital (02) ==
LOC: ED 00:25
DX: K56.600 Partial intestinal obstruction, unspecified as to cause (principal); R10.84 Generalized abdominal pain; J44.9 Chronic obstructive pulmonary disease, unspecified; Z98.84 Bariatric surgery status; Z79.891 Long term (current) use of opiate analgesic; Z79.899 Other long term (current) drug therapy
CPT/HCPCS: 36000; 36415; 74176; 80053; 83605; 83690; 84484; 85025; 96374; 96375; 99284; J1170; J2405

== ENCOUNTER 2023-09-26 12:22 | Emergency (ER) | payer MEDICARE ==
[2023-09-26 12:38] VITALS: TEMP 97.6
--- NOTE | 2023-09-26 12:46 | ERPHSYRPT ---
- History of Present Illness Time Seen by Provider: 09/26/23 12:42 Source: patient Exam Limitations: no limitations Patient Subjective Stated Complaint: Cough Triage Nursing Assessment: Patient brought into ED per w/c and transferred self to bed. Patient A+O X3. Patient's skin pink, warm and dry. Patient went to [facility] for her cough and her initial oxygen was 88% on room air. O2 sat upon assessment 96% on room air. Patient denies pain or discomfort. Patient states she has had a productive cough with thick green sputum. Lungs noted to be di minished throughout. Physician History: Patient is a 73-year-old white female who has been coughing for a couple of weeks. She was seen in [facility] and was placed on an antibiotic which she has finished but she still has her cough and shortness of breath with exertion. Today at [facility] they noted an O2 sat of 88% however on room air in the ER she has never been less than 96%. It is believed the recent antibiotic was Augmentin. Cough Quality/Degree: productive cough, sputum (Green) Possible Cause: occasional episodes (Patient says she has COPD and asthma.) Allergies/Adverse Reactions: Sulfa (Sulfonamide Antibiotics) Allergy (Intermediate, Verified 09/26/23 12:28) morphine Allergy (Unknown, Verified 09/26/23 12:28) Home Medications: Pantoprazole 20 mg [Protonix 20MG Tablet] 40 mg PO DAILY 03/08/17 [History] estradioL [Estradiol] 0.5 mg PO DAILY 01/21/19 [History] Metoprolol Tartrate 50 mg [Lopressor 50 MG] 50 mg PO BID 04/06/22 [H istory] Tramadol HCl 50 mg [Ultram 50 mg] 25 mg PO Q4-6HPRN PRN 04/06/22 [History] Tramadol HCl [Tramadol HCl ER] 200 mg PO DAILY 04/06/22 [History] Hx Tetanus, Diphtheria Vaccination/Date Given: Yes Hx Influenza Vaccination/Date Given: Yes Hx Pneumococcal Vaccination/Date Given: Yes Immunizations Up to Date: Yes Travel Risk - International Travel Have you traveled outside of the country in past 3 weeks: No - Coronavirus Screening Are you exhibiting any of the following symptoms?: Yes Symptoms: Cough: New Onset, Shortness of Breath Close contact with a COVID-19 positive Pt in past 14-21 Days: No - Vaccine Status Have you recieved a Covid-19 vaccination: Yes [employer]: Moderna - Vaccination Dates Date of 2cond Vaccination (if applicable): 03/23/21 - Review of Systems Constitutional: No Fever, No Chills Eyes: No Symptoms Ears, Nose, & Throat: No Symptoms Respiratory: Cough, Dyspnea on Exertion (KING), No Dyspnea Cardiac: No Chest Pain, No Edema, No Syncope Abdominal/Gastrointestinal: No Abdominal Pain, No Nausea, No Vomiting, No Diarrhea Genitourinary Symptoms: No Dysuria Musculoskeletal: No Back Pain, No Neck Pain Skin: No Rash Neurological: No Dizziness, No Focal Weakness, No Sensory Changes Psychological: No Symptoms Endocrine: No Symptoms All Other Systems: Reviewed and Negative - Past Medical History Pertinent Past Medical History: Yes Neurological History: TIA ENT History: Cataracts, Glaucoma, Other Cardiac History: Arrhythmia, Other Respiratory History: Asthma, COPD Endocrine Medical History: No Pertinent History Musculoskeletal History: Osteoporosis GI Medical History: Ulcer History: Other Psycho-Social History: Anxiety, Depression Female Reproductive Disorders: Abnormal Uterine Bleeding Other Medical History: 2 TIAs, seizures, Pacemaker, cardiac arrest, OA and buldging discs in the neck and Lower back, sciatica on rt and lt. - Past Surgical History Past Surgical History: Yes Neuro Surgical History: No Pertinent History Cardiac: Pacemaker, Other Respiratory: No Pertinent History, Other Gastrointestinal: Appendectomy, Cholecystectomy Musculoskeletal: Joint Replacement, Orthopedic Surgery, Other Female Surgical History: Hysterectomy, Other Other Surgical History: EYE SURGERY L KNEE SURGERY/replacement HAND SURGERY. BARIATRIC SURGERY. bladder tie up x 2. sinus surgery. tonsilectomy. left knee surgery. carpal tunnel surgery. carpel tunnel x 2. patient states she has in surgery before, and has problems waking up from anesthesia - Social History Smoking Status: Never smoker Exposure to second hand smoke: Yes Drug Use: none Patient Lives Alone: No Significant Family History: no pertinent family hx - Nursing Vital Signs Nursing Vital Signs: Initial Vital Signs Temperature 97.6 F 09/26/23 12:29 Pulse Rate 76 09/26/23 12:29 Respiratory Rate 23 09/26/23 12:29 Blood Pressure 150/93 09/26/23 12:29 O2 Sat by Pulse Oximetry 97 09/26/23 12:29 Pain Scale Pain Intensity 0 - Physical Exam General Appearance: no apparent distress, alert Eye Exam: PERRL/EOMI, eyes nml inspection Ears, Nose, Throat Exam: normal ENT inspection, TMs normal, pharynx normal, moist mucous membranes, other (Some nasal discharge) Neck Exam: normal inspection, non-tender, supple, full range of motion Respiratory Exam: normal breath sounds, lungs clear, airway intact, No respiratory distress Cardiovascular Exam: regular rate/rhythm, normal heart sounds Gastrointestinal/Abdomen Exam: soft, No tenderness Back Exam: normal inspection, No CVA tenderness, No vertebral tenderness Extremity Exam: normal inspection, normal range of motion Neurologic Exam: alert, oriented x 3, cooperative, normal mood/affect, sensation nml, No motor deficits Skin Exam: normal color, warm, dry, No rash Lymphatic Exam: No adenopathy SpO2: 100 - Course Nursing assessment & vital signs reviewed: Yes EKG Interpreted by Me: RATE (74), Other (Paced rhythm atrial left anterior fascicular block) - Radiology Exams Chest X-ray Interpretation: Interpreted by me Ordered Tests: Active Orders 24 hr Category Date Time Status EKG-ER Only STAT Care 09/26/23 12:39 Active CHEST 1 VIEW (PORTABLE) Stat Exams 09/26/23 12:40 Taken CBC W DIFF Stat Lab 09/26/23 12:50 Completed CMP Stat Lab 09/26/23 12:50 Completed Lactic Acid Stat Lab 09/26/23 13:22 Completed PROCALCITONIN Stat Lab 09/26/23 12:50 Completed UA W/RFX UR CULTURE Stat Lab 09/26/23 12:40 Ordered Lab/Rad Data: Laboratory Result Diagrams 09/26/23 12:50 09/26/23 12:50 Laboratory Results 09/26/23 09/26/23 09/26/23 Range/Units 13:22 12:50 12:50 WBC (4.0-10.5) x10^3/uL RBC (4.1-5.4) x10^6/uL Hgb (12.0-16.0) g/dL Hct (35-47) % MCV (78-100) fL MCH (26-32) pg MCHC (32-36) g/dL RDW (11.5-14.0) % Plt Count (150-450) x10^3/uL MPV (7.5-11.0) fL Gran % (36.0-66.0) % Immature Gran % (Auto) (0.00-0.4) % Nucleat RBC Rel Count (0.00-0.1) % Eos # (Auto) (0-0.5) x10^3/uL Immature Gran # (Auto) (0.00-0.03) x10^3u/L Absolute Lymphs (auto) (1.0-4.6) x10^3/uL Absolute Monos (auto) (0.0-1.3) x10^3/uL Absolute Nucleated RBC (0.00-0.01) x10^3u/L Lymphocytes % (24.0-44.0) % Monocytes % (0.0-12.0) % Eosinophils % (0.00-5.0) % Basophils % (0.0-0.4) % Absolute Granulocytes (1.4-6.9) x10^3/uL Basophils # (0-0.4) x10^3/uL Sodium (137-145) mmol/L Potassium (3.5-5.1) mmol/L Chloride (98-107) mmol/L Carbon Dioxide (22-30) mmol/L Anion Gap (5-15) MEQ/L BUN (7-17) mg/dL Creatinine (0.52-1.04) mg/dL Estimated GFR ML/MIN Glucose (74-106) mg/dL Lactic Acid 0.9 (0.4-2.0) Calcium (8.4-10.2) mg/dL Total Bilirubin (0.2-1.3) mg/dL AST (14-36) U/L ALT (0-35) U/L Alkaline Phosphatase (38-126) U/L Serum Total Protein (6.3-8.2) g/dL Albumin (3.5-5.0) g/dL Procalcitonin 0.048 (0.030-0.080) ng/mL Influenza Type A Ag NEGATIVE (NEGATIVE) Influenza Type B Ag NEGATIVE (NEGATIVE) RSV (PCR) NEGATIVE (NEGATIVE) SARS-CoV-2 (PCR) NEGATIVE (NEGATIVE) 09/26/23 09/26/23 Range/Units 12:50 12:50 WBC 8.8 (4.0-10.5) x10^3/uL RBC 3.74 L (4.1-5.4) x10^6/uL Hgb 11.9 L (12.0-16.0) g/dL Hct 36.6 (35-47) % MCV 97.9 (78-100) fL MCH 31.8 (26-32) pg MCHC 32.5 (32-36) g/dL RDW 13.5 (11.5-14.0) % Plt Count 243 (150-450) x10^3/uL MPV 9.3 (7.5-11.0) fL Gran % 73.8 H (36.0-66.0) % Immature Gran % (Auto) 0.3 (0.00-0.4) % Nucleat RBC Rel Count 0.0 (0.00-0.1) % Eos # (Auto) 0.13 (0-0.5) x10^3/uL Immature Gran # (Auto) 0.03 (0.00-0.03) x10^3u/L Absolute Lymphs (auto) 1.62 (1.0-4.6) x10^3/uL Absolute Monos (auto) 0.48 (0.0-1.3) x10^3/uL Absolute Nucleated RBC 0.00 (0.00-0.01) x10^3u/L Lymphocytes % 18.4 L (24.0-44.0) % Monocytes % 5.5 (0.0-12.0) % Eosinophils % 1.5 (0.00-5.0) % Basophils % 0.5 (0.0-0.4) % Absolute Granulocytes 6.49 (1.4-6.9) x10^3/uL Basophils # 0.04 (0-0.4) x10^3/uL Sodium 136 L (137-145) mmol/L Potassium 4.8 (3.5-5.1) mmol/L Chloride 102 (98-107) mmol/L Carbon Dioxide 29 (22-30) mmol/L Anion Gap 9.9 (5-15) MEQ/L BUN 19 H (7-17) mg/dL Creatinine 1.02 (0.52-1.04) mg/dL Estimated GFR 58.8 ML/MIN Glucose 81 (74-106) mg/dL Lactic Acid (0.4-2.0) Calcium 9.6 (8.4-10.2) mg/dL Total Bilirubin 0.40 (0.2-1.3) mg/dL AST 44 H (14-36) U/L ALT 44 H (0-35) U/L Alkaline Phosphatase 160 H (38-126) U/L Serum Total Protein 6.4 (6.3-8.2) g/dL Albumin 3.8 (3.5-5.0) g/dL Procalcitonin (0.030-0.080) ng/mL Influenza Type A Ag (NEGATIVE) Influenza Type B Ag (NEGATIVE) RSV (PCR) (NEGATIVE) SARS-CoV-2 (PCR) (NEGATIVE) - Progress Progress: unchanged Air Movement: good Blood Culture(s) Obtained: No Antibiotics given: Yes Medical Desision Making - Independent Historian Additional History obtained from: Spouse - Diagnostic Testing Diagnostic test were ordered, analyzed, and reviewed by me: Yes Radiological Interpretation: Interpreted by me - Risk of complications Low Risk: Low risk of morbidity from additional dx testing or treatment - Departure Departure Disposition: Home Clinical Impression: COPD exacerbation Condition: Stable Critical Care Time: No Referrals: JOHANNA LOVE NP [Primary Care Provider] - Follow up/PCP as directed Instructions: Chronic Obstructive Pulmonary Disease, Exacerbation of COPD (DC) Prescriptions: Prednisone 10 mg [Deltasone 10 mg] 20 mg PO TID 4 Days #12 tablet Azithromycin 250 mg [Zithromax 250 MG TABLET] 250 mg PO ZPACK #6 tablet
[2023-09-26 12:57] LABS: Absolute Neutrophil Ct (ANC) 6.49 x10^3/uL (1.4-6.9); BASOPHIL % 0.5 % (0.0-0.4); Basophil (Absolute #) 0.04 x10^3/uL (0-0.4); Eosinophil % 1.5 % (0.00-5.0); Eosinophil (Absolute #) 0.13 x10^3/uL (0-0.5); Hematocrit 36.6 % (35-47); Hemoglobin 11.9 g/dL (12.0-16.0); IMMATURE GRAN # 0.03 x10^3u/L (0.00-0.03); IMMATURE GRAN % 0.3 % (0.00-0.4); Lymphocyte (Absolute #) 1.62 x10^3/uL (1.0-4.6); Lymphocytes % 18.4 % (24.0-44.0); Mean Cell Volume 97.9 fL (78-100); Mean Corpuscular Hemoglobin 31.8 pg (26-32); Mean Corpuscular Hgb Concent. 32.5 g/dL (32-36); Mean Platelet Volume 9.3 fL (7.5-11.0); Monocyte (Absolute #) 0.48 x10^3/uL (0.0-1.3); Monocytes % 5.5 % (0.0-12.0); Neutrophil % 73.8 % (36.0-66.0); Platelet Count 243 x10^3/uL (150-450); Red Blood Count 3.74 x10^6/uL (4.1-5.4); Red Cell Distribution Width 13.5 % (11.5-14.0); White Blood Count 8.8 x10^3/uL (4.0-10.5)
[2023-09-26 13:15] LABS: ALBUMIN 3.8 g/dL (3.5-5.0); ANION GAP 9.9 MEQ/L (5-15); BILIRUBIN,TOTAL 0.4 mg/dL (0.2-1.3); Calcium 9.6 mg/dL (8.4-10.2); Creatinine 1 1.02 mg/dL (0.52-1.04); EST GLOMERULAR FILTRATION RATE 58.8 ML/MIN; Potassium 4.8 mmol/L (3.5-5.1); Total Protein 6.4 g/dL (6.3-8.2)
[2023-09-26 13:33] LABS: INFLUENZA A NEGATIVE (NEGATIVE); INFLUENZA B NEGATIVE (NEGATIVE); RESPIRATORY SYNCTIAL VIRUS NEGATIVE (NEGATIVE); SARS-CoV-2 Xpert Express NEGATIVE (NEGATIVE)
[2023-09-26 14:12] VITALS: BP 137/75; PULSE 80; RESP 19; O2SAT 95
--- NOTE | 2023-09-26 19:56 | XRAY ---
Indication: Short of breath. Cough. Comparison: December 16, 2021 Portable chest remains hyperinflated and clear. Heart not enlarged again with left pacemaker. Bony thorax intact again with osteopenia, mild degenerative changes, and minimal double curvature thoracolumbar scoliosis. No new/acute findings.
== END 2023-09-26 14:14 | disposition home or self-care (01) ==
LOC: ED 12:22
DX: J44.1 Chronic obstructive pulmonary disease with (acute) exacerbation (principal); R05.9 Cough, unspecified; R06.02 Shortness of breath; Z79.52 Long term (current) use of systemic steroids; Z79.891 Long term (current) use of opiate analgesic; Z79.899 Other long term (current) drug therapy; Z20.828 Contact with and (suspected) exposure to other viral communicable diseases
CPT/HCPCS: 0241U; 36415; 71045; 80053; 83605; 84145; 85025; 93005; 99283

== ENCOUNTER 2024-12-30 08:58 | Observation (INO) | payer MEDICARE ==
[2024-12-30] MEDS ORDERED: Sterile H2O 10 ml IJ ONE (09:01)
[2024-12-30] MEDS ORDERED: solu-MEDROL ONE (09:01)
[2024-12-30] MEDS ORDERED: BENADRYL 50 MG/ML ONE (09:01)
[2024-12-30] MEDS ORDERED: NOREPINEPHRINE 8 MG/250 ML-D5W 8 MG/250 ML PLAST..BAG IV PRN (09:17)
[2024-12-30] MEDS ORDERED: Sodium Chloride 0.9% 1000 ML 1,000 ML ONE ×2 (09:17→10:10)
--- NOTE | 2024-12-30 09:17 | ERPHSYRPT ---
- History of Present Illness Time Seen by Provider: 12/30/24 08:59 Source: patient Exam Limitations: no limitations Physician History: Pt states she has had dysuria for the past 2 weeks and 1 week ago was Rx'ed an antibiotic(Macrobid) which she did not get filled until recently. Pt took her first dose of Macrobid this Morning about 7 AM and about 1 hour later started w ith itching, generalized weakness, nausea, vomiting x1 and generalized rash. Pt denies chest pain, fever, chills, cough, headache, sore throat, earache. LBM was yesterday & wnl. Allergies/Adverse Reactions: Sulfa (Sulfonamide Antibiotics) Allergy (Intermediate, Verified 12/30/24 09:05) morphine Allergy (Unknown, Verified 12/30/24 09:05) nitrofurantoin [From Macrobid] Allergy (Verified 12/30/24 09:06) Home Medications: Pantoprazole 20 mg [Protonix 20MG Tablet] 40 mg PO DAILY 03/08/17 [History] estradioL [Estradiol] 0.5 mg PO DAILY 01/21/19 [History] Metoprolol Tartrate 50 mg [Lopressor 50 MG] 50 mg PO BID 04/06/22 [His tory] Tramadol HCl 50 mg [Ultram 50 mg] 25 mg PO Q4-6HPRN PRN 04/06/22 [History] Tramadol HCl [Tramadol HCl ER] 200 mg PO DAILY 04/06/22 [History] Hx Tetanus, Diphtheria Vaccination/Date Given: Yes Hx Influenza Vaccination/Date Given: Yes Hx Pneumococcal Vaccination/Date Given: Yes - Review of Systems Constitutional: No Fever, No Chills Ears, Nose, & Throat: No Ear Pain, No Throat Pain Respiratory: No Cough Cardiac: No Chest Pain Abdominal/Gastrointestinal: Nausea, Vomiting, No Diarrhea Skin: Pruritis, Rash Neurological: No Headache - Past Medical History Pertinent Past Medical History: Yes Neurological History: TIA ENT History: Cataracts, Glaucoma, Other Cardiac History: Arrhythmia, Other Respiratory History: Asthma, COPD Endocrine Medical History: No Pertinent History Musculoskeletal History: Osteoporosis GI Medical History: Ulcer History: Other Psycho-Social History: Anxiety, Depression Female Reproductive Disorders: Abnormal Uterine Bleeding Other Medical History: 2 TIAs, seizures, Pacemaker, cardiac arrest, OA and buldging discs in the neck and Lower back, sciatica on rt and lt. - Past Surgical History Past Surgical History: Yes Neuro Surgical History: No Pertinent History Cardiac: Pacemaker, Other Respiratory: No Pertinent History, Other Gastrointestinal: Appendectomy, Cholecystectomy Musculoskeletal: Joint Replacement, Orthopedic Surgery, Other Female Surgical History: Hysterectomy, Other Other Surgical History: EYE SURGERY L KNEE SURGERY/replacement HAND SURGERY. BARIATRIC SURGERY. bladder tie up x 2. sinus surgery. tonsilectomy. left knee surgery. carpal tunnel surgery. carpel tunnel x 2. patient states she has in surgery before, and has problems waking up from anesthesia Significant Family History: no pertinent family hx - Social History Smoking Status: Never smoker Exposure to second hand smoke: Yes Drug Use: none Patient Lives Alone: No - Nursing Vital Signs Nursing Vital Signs: Initial Vital Signs Temperature 97 F 12/30/24 09:00 Pulse Rate 60 12/30/24 09:00 Respiratory Rate 12 12/30/24 09:00 Blood Pressure 70/20 12/30/24 09:00 O2 Sat by Pulse Oximetry 88 L 12/30/24 09:00 Pain Scale Pain Intensity 3 - Physical Exam General Appearance: alert Eye Exam: PERRL/EOMI Ears, Nose, Throat Exam: pharynx normal, other (no pharyngeal edema) Neck Exam: normal inspection Respiratory Exam: lungs clear Cardiovascular Exam: normal heart sounds Gastrointestinal/Abdomen Exam: normal bowel sounds Extremity Exam: No pedal edema Neurologic Exam: alert, cooperative Skin Exam: rash (generalized macular erythematous pruritic rash) - Course EKG Interpreted by Me: RATE (61), Other (Paced rhythm; QTC = 469) - Radiology Exams Chest X-ray Interpretation: Discussed w/ radiologist (No new or acute findings. See rest of report.) - CT Exams Abdomen/Pelvis CT Interpretation: Discussed w/radiologist (Diffuse respiratory artifact. Worsening moderate diffuse fecal stasis with new rectal impaction. Again chronic findings including right renal cyst, arteriosclerotic disease, chronic bony findings and old granulomatous disease.) Chest CT Interpretation: Discussed w/radiologist (See report.) Ordered Tests: Active Orders 24 hr Category Date Time Status EKG-ER Only STAT Care 12/30/24 09:13 Active IV Insertion STAT Care 12/30/24 09:13 Active ABDOMEN AND PELVIS W/0 CONTRAS [CT] Stat Exams 12/30/24 09:15 Completed CHEST 1 VIEW (PORTABLE) Stat Exams 12/30/24 09:14 Completed CHEST WITH CONTRAST [CT] Stat Exams 12/30/24 10:29 Completed ABG [ARTERIAL BLOOD GASES] Stat Lab 12/30/24 09:12 Completed AMYLASE Stat Lab 12/30/24 10:01 Completed BLOOD CULTURE Stat Lab 12/30/24 09:36 Received CBC W DIFF Stat Lab 12/30/24 09:13 Completed CMP Stat Lab 12/30/24 10:01 Completed CULTURE,URINE Stat Lab 12/30/24 11:27 Received D-DIMER QUANTITATIVE Stat Lab 12/30/24 10:01 Completed LIPASE Stat Lab 12/30/24 10:01 Completed Lactic Acid Stat Lab 12/30/24 09:12 Completed Lactic Acid Stat Lab 12/30/24 13:26 Completed MAGNESIUM Stat Lab 12/30/24 10:01 Completed TROPONIN Q4H Lab 12/30/24 10:01 Completed TROPONIN Q4H Lab 12/30/24 13:14 Completed TROPONIN Q4H Lab 12/30/24 17:15 Ordered UA W/RFX UR CULTURE Stat Lab 12/30/24 11:27 Completed Medication Summary Generic Name Dose Route Start Last Admin Trade Name Freq PRN Reason Stop Dose Admin Norepinephrine/Dextrose 8 mg in 250 mls @ 15 mls/hr 12/30/24 09:17 Norepinephrine 8 Mg/250 Ml-D5w IV 01/29/25 09:16 .[id number] PRN HYPOTENSION Protocol 8 MCG/MIN Sodium Chloride 1,000 mls @ 100 mls/hr 12/30/24 10:15 12/30/24 11:04 Sodium Chloride 0.9% 1000 Ml IV 01/29/25 10:14 Infused .Q10H JOIE Infusion Discontinued Medications Generic Name Dose Route Start Last Admin Trade Name Freq PRN Reason Stop Dose Admin Methylprednisolone Sodium 0 mg 12/30/24 09:13 12/30/24 09:26 Succinate 125 mg/ Sterile IV 12/30/24 09:14 Not Given Water 2 ml STAT ONE Methylprednisolone Sodium 0 mg 12/30/24 09:27 12/30/24 09:28 Succinate 125 mg/ Sterile IV 12/30/24 09:28 125 mg Water 2 ml STAT ONE Administration Diphenhydramine HCl Confirm 12/30/24 09:01 Diphenhydramine Hcl 50 Mg/Ml Vial Administered 12/30/24 09:02 Dose 50 mg .ROUTE .STK-MED ONE Diphenhydramine HCl 25 mg 12/30/24 09:12 12/30/24 09:22 Diphenhydramine Hcl 50 Mg/Ml Vial IV 12/30/24 09:13 25 mg STAT ONE Administration Sodium Chloride 1,000 mls @ 999 mls/hr 12/30/24 09:13 12/30/24 11:04 Sodium Chloride 0.9% 1000 Ml IV 12/30/24 10:13 Infused .Q1H1M STA Infusion Sodium Chloride Confirm 12/30/24 09:17 Sodium Chloride 0.9% 1000 Ml Administered 12/30/24 09:18 Dose 1,000 mls @ ud .ROUTE .STK-MED ONE Ceftriaxone Sodium 1 gm in 100 mls @ 200 mls/hr 12/30/24 12:47 12/30/24 13:35 Rocephin 1 Gm / 100 Ml Nacl IV 12/30/24 13:16 Infused STAT ONE Infusion Ceftriaxone Sodium Confirm 12/30/24 12:54 Rocephin 1 Gm / 100 Ml Nacl Administered 12/30/24 12:55 Dose 1 gm in 100 mls @ ud IV .STK-MED ONE Methylprednisolone Sodium Succinate Confirm 12/30/24 09:01 Methylprednis Sod Succ 125 Mg/2 Ml Vial Administered 12/30/24 09:02 Dose 125 mg .ROUTE .STK-MED ONE Ondansetron HCl 4 mg 12/30/24 09:11 12/30/24 09:22 Ondansetron Hcl 4 Mg/2 Ml Vial IV 12/30/24 09:12 4 mg STAT ONE Administration Ondansetron HCl Confirm 12/30/24 09:22 Ondansetron Hcl 4 Mg/2 Ml Vial Administered 12/30/24 09:23 Dose 4 mg .ROUTE .STK-MED ONE Sterile Water Confirm 12/30/24 09:01 Water For Injection,Sterile 10 Ml Vial Administered 12/30/24 09:02 Dose 10 ml IJ .STK-MED ONE Lab/Rad Data: Laboratory Result Diagrams 12/30/24 09:13 12/30/24 10:01 Laboratory Results 12/30/24 12/30/24 12/30/24 Range/Units 13:26 13:14 11:27 WBC (3.98-10.04) x10^3/uL RBC (3.93-5.22) x10^6/uL Hgb (11.2-15.7) g/dL Hct (34.1-44.9) % MCV (79.4-94.8) fL MCH (25.6-32.2) pg MCHC (32.2-35.5) g/dL RDW (11.7-14.4) % Plt Count (182-369) x10^3/uL MPV (9.4-12.3) fL Gran % (34.0-71.1) % Immature Gran % (Auto) (0.001-0.429) % Nucleat RBC Rel Count (0.00-0.2) % Eos # (Auto) (0.04-0.36) x10^3/uL Immature Gran # (Auto) (0.001-0.031) x10^3u/L Absolute Lymphs (auto) (1.18-3.74) x10^3/uL Absolute Monos (auto) (0.24-0.86) x10^3/uL Absolute Nucleated RBC (0.00-0.012) x10^3u/L Lymphocytes % (19.3-51.7) % Monocytes % (4.7-12.5) % Eosinophils % (0.7-5.8) % Basophils % (0.1-1.2) % Absolute Granulocytes (1.56-6.13) x10^3/uL Basophils # (0.01-0.08) x10^3/uL D-Dimer (0.0-0.50) mg/L Puncture Site pCO2 (35-45) mmHg pO2 (75-100) mmHg Base Excess (-2.0-2.0) O2 Saturation (94-100) g/dF ABG pH (7.35-7.45) ABG HCO3 (22-28) ABG O2 Sat (Measured) (95-100) % Errol Test A-a Gradient a/A Ratio Hemoglobin Carboxyhemoglobin (0.0-6.9) % THgb Methemoglobin (1.4-1.5) % Potassium (3.5-5.1) Temperature C POC O2 Flow Rate % Sodium (135-145) mmol/L Chloride (98-107) mmol/L Carbon Dioxide (22-30) mmol/L Anion Gap (5-15) MEQ/L BUN (7-17) mg/dL Creatinine (0.52-1.04) mg/dL Estimated GFR ML/MIN Glucose (74-106) mg/dL Lactic Acid 1.4 (0.4-2.0) Calcium (8.4-10.2) mg/dL Magnesium (1.6-2.3) mg/dL Total Bilirubin (0.2-1.3) mg/dL AST (14-36) U/L ALT (0-35) U/L Alkaline Phosphatase (38-126) U/L Troponin I 0.016 (0.000-0.033) ng/mL Serum Total Protein (6.3-8.2) g/dL Albumin (3.5-5.0) g/dL Amylase (30-110) U/L Lipase (23-300) U/L Urine Color Dark Yellow A (Yellow) Urine Appearance Clear (Clear) Urine pH 5.0 (4.6-8.0) Ur Specific [place] 1.015 (1.005-1.030) Urine Protein Trace A (Negative) Urine Glucose (UA) Negative (Negative) mg/dL Urine Ketones Negative (Negative) Urine Blood Negative (Negative) Urine Nitrite Positive A (Negative) Urine Bilirubin Negative (Negative) Urine Urobilinogen 0.2 (0.2) mg/dL Ur Leukocyte Esterase Trace A (Negative) U Hyaline Cast (Auto) 3-5 A (0-2) /LPF Urine Microscopic RBC 0-2 (0-5) /HPF Urine Microscopic WBC 6-10 A (0-5) /HPF Ur Epithelial Cells None Seen (None Seen) /HPF Urine Bacteria Moderate A (None Seen) /HPF Urine Culture Reflexed YES (NO) 12/30/24 12/30/24 12/30/24 Range/Units 10:01 10:01 10:01 WBC (3.98-10.04) x10^3/uL RBC (3.93-5.22) x10^6/uL Hgb (11.2-15.7) g/dL Hct (34.1-44.9) % MCV (79.4-94.8) fL MCH (25.6-32.2) pg MCHC (32.2-35.5) g/dL RDW (11.7-14.4) % Plt Count (182-369) x10^3/uL MPV (9.4-12.3) fL Gran % (34.0-71.1) % Immature Gran % (Auto) (0.001-0.429) % Nucleat RBC Rel Count (0.00-0.2) % Eos # (Auto) (0.04-0.36) x10^3/uL Immature Gran # (Auto) (0.001-0.031) x10^3u/L Absolute Lymphs (auto) (1.18-3.74) x10^3/uL Absolute Monos (auto) (0.24-0.86) x10^3/uL Absolute Nucleated RBC (0.00-0.012) x10^3u/L Lymphocytes % (19.3-51.7) % Monocytes % (4.7-12.5) % Eosinophils % (0.7-5.8) % Basophils % (0.1-1.2) % Absolute Granulocytes (1.56-6.13) x10^3/uL Basophils # (0.01-0.08) x10^3/uL D-Dimer 3.20 H* (0.0-0.50) mg/L Puncture Site pCO2 (35-45) mmHg pO2 (75-100) mmHg Base Excess (-2.0-2.0) O2 Saturation (94-100) g/dF ABG pH (7.35-7.45) ABG HCO3 (22-28) ABG O2 Sat (Measured) (95-100) % Errol Test A-a Gradient a/A Ratio Hemoglobin Carboxyhemoglobin (0.0-6.9) % THgb Methemoglobin (1.4-1.5) % Potassium 5.0 (3.5-5.1) Temperature C POC O2 Flow Rate % Sodium 139 (135-145) mmol/L Chloride 108 H (98-107) mmol/L Carbon Dioxide 19 L (22-30) mmol/L Anion Gap 16.9 H (5-15) MEQ/L BUN 22 H (7-17) mg/dL Creatinine 1.04 (0.52-1.04) mg/dL Estimated GFR 57.1 ML/MIN Glucose 129 H (74-106) mg/dL Lactic Acid (0.4-2.0) Calcium 9.1 (8.4-10.2) mg/dL Magnesium 1.9 (1.6-2.3) mg/dL Total Bilirubin 0.60 (0.2-1.3) mg/dL AST 47 H (14-36) U/L ALT 38 H (0-35) U/L Alkaline Phosphatase 90 (38-126) U/L Troponin I < 0.012 (0.000-0.033) ng/mL Serum Total Protein 6.0 L (6.3-8.2) g/dL Albumin 3.8 (3.5-5.0) g/dL Amylase 95 (30-110) U/L Lipase 219 (23-300) U/L Urine Color (Yellow) Urine Appearance (Clear) Urine pH (4.6-8.0) Ur Specific [place] (1.005-1.030) Urine Protein (Negative) Urine Glucose (UA) (Negative) mg/dL Urine Ketones (Negative) Urine Blood (Negative) Urine Nitrite (Negative) Urine Bilirubin (Negative) Urine Urobilinogen (0.2) mg/dL Ur Leukocyte Esterase (Negative) U Hyaline Cast (Auto) (0-2) /LPF Urine Microscopic RBC (0-5) /HPF Urine Microscopic WBC (0-5) /HPF Ur Epithelial Cells (None Seen) /HPF Urine Bacteria (None Seen) /HPF Urine Culture Reflexed (NO) 12/30/24 12/30/24 12/30/24 Range/Units 09:13 09:12 09:12 WBC 9.0 (3.98-10.04) x10^3/uL RBC 4.31 (3.93-5.22) x10^6/uL Hgb 13.3 (11.2-15.7) g/dL Hct 40.2 (34.1-44.9) % MCV 93.3 (79.4-94.8) fL MCH 30.9 (25.6-32.2) pg MCHC 33.1 (32.2-35.5) g/dL RDW 13.1 (11.7-14.4) % Plt Count 304 (182-369) x10^3/uL MPV 9.7 (9.4-12.3) fL Gran % 50.8 (34.0-71.1) % Immature Gran % (Auto) 0.2 (0.001-0.429) % Nucleat RBC Rel Count 0.0 (0.00-0.2) % Eos # (Auto) 0.09 (0.04-0.36) x10^3/uL Immature Gran # (Auto) 0.02 (0.001-0.031) x10^3u/L Absolute Lymphs (auto) 3.80 H (1.18-3.74) x10^3/uL Absolute Monos (auto) 0.50 (0.24-0.86) x10^3/uL Absolute Nucleated RBC 0.00 (0.00-0.012) x10^3u/L Lymphocytes % 42.1 (19.3-51.7) % Monocytes % 5.5 (4.7-12.5) % Eosinophils % 1.0 (0.7-5.8) % Basophils % 0.4 (0.1-1.2) % Absolute Granulocytes 4.57 (1.56-6.13) x10^3/uL Basophils # 0.04 (0.01-0.08) x10^3/uL D-Dimer (0.0-0.50) mg/L Puncture Site RIGHT RADIAL pCO2 38 (35-45) mmHg pO2 168 H* (75-100) mmHg Base Excess -5.4 L (-2.0-2.0) O2 Saturation 98.2 (94-100) g/dF ABG pH 7.33 L (7.35-7.45) ABG HCO3 20.0 L (22-28) ABG O2 Sat (Measured) 100.0 (95-100) % Errol Test y A-a Gradient 27 a/A Ratio 0.86 Hemoglobin 13.4 Carboxyhemoglobin 1.3 (0.0-6.9) % THgb Methemoglobin 0.5 L (1.4-1.5) % Potassium 4.7 (3.5-5.1) Temperature 37.0 C POC O2 Flow Rate 34 % Sodium (135-145) mmol/L Chloride (98-107) mmol/L Carbon Dioxide (22-30) mmol/L Anion Gap (5-15) MEQ/L BUN (7-17) mg/dL Creatinine (0.52-1.04) mg/dL Estimated GFR ML/MIN Glucose (74-106) mg/dL Lactic Acid 2.4 H (0.4-2.0) Calcium (8.4-10.2) mg/dL Magnesium (1.6-2.3) mg/dL Total Bilirubin (0.2-1.3) mg/dL AST (14-36) U/L ALT (0-35) U/L Alkaline Phosphatase (38-126) U/L Troponin I (0.000-0.033) ng/mL Serum Total Protein (6.3-8.2) g/dL Albumin (3.5-5.0) g/dL Amylase (30-110) U/L Lipase (23-300) U/L Urine Color (Yellow) Urine Appearance (Clear) Urine pH (4.6-8.0) Ur Specific [place] (1.005-1.030) Urine Protein (Negative) Urine Glucose (UA) (Negative) mg/dL Urine Ketones (Negative) Urine Blood (Negative) Urine Nitrite (Negative) Urine Bilirubin (Negative) Urine Urobilinogen (0.2) mg/dL Ur Leukocyte Esterase (Negative) U Hyaline Cast (Auto) (0-2) /LPF Urine Microscopic RBC (0-5) /HPF Urine Microscopic WBC (0-5) /HPF Ur Epithelial Cells (None Seen) /HPF Urine Bacteria (None Seen) /HPF Urine Culture Reflexed (NO) - Progress Progress: improved Progress Note: 12/30/24 11:58 Pt had a large BM in ER. Will see patient in: hospital (observation), other (Spoke with & discussed case with Dr. Payton([id number]) - obs) Counseled pt/family regarding: lab results, diagnosis, rad results Medical Desision Making - Diagnostic Testing Diagnostic test were ordered, analyzed, and reviewed by me: Yes Radiological Interpretation: Discussed w/ radiologist - Departure Departure Disposition: Observation Clinical Impression: Allergic reaction to Macrobid, Hypotension, Vomiting, Nausea, UTI (urinary tract infection) Condition: Stable Critical Care Time: No Referrals: IVAN,JOHANNA FEROZ, SENIOR SECURITY ANALYST [Primary Care Provider] - Follow up/PCP as directed
[2024-12-30] MEDS: BENADRYL 50 MG/ML IV ONE (09:22)
[2024-12-30] MEDS ORDERED: Zofran 4 MG/2 ML VIAL ONE (09:22)
[2024-12-30] MEDS: Zofran 4 MG/2 ML VIAL IV ONE (09:22)
[2024-12-30 09:25] LABS: A-aADO2 27; ABG HEMOGLOBIN 13.4; ABG POTASSIUM 4.7 (3.5-5.1); ARTERIAL BLOOD GAS BASE EXCESS -5.4 (-2.0-2.0); ARTERIAL BLOOD GAS FIO2 34 %; ARTERIAL BLOOD GAS PCO2 38 mmHg (35-45); ARTERIAL BLOOD GAS PO2 168 mmHg (75-100); ARTERIAL BLOOD GAS pH 7.33 (7.35-7.45); CARBOXYHEMOGLOBIN 1.3 % THgb (0.0-6.9); HGB O2 SAT 98.2 g/dF (94-100); Methhemoglobin 0.5 % (1.4-1.5); paO2 pAO1 0.86
[2024-12-30] MEDS: Sodium Chloride 0.9% 1000 ML 1,000 ML IV STA (09:25)
[2024-12-30 09:26] LABS: ABG SITE RIGHT RADIAL; ALLEN TEST OK? y
[2024-12-30] MEDS: solu-MEDROL 125 MG, Sterile H2O 10 ml 2 ML IV ONE ×2 (09:26→09:28)
[2024-12-30 10:03] LABS: Absolute Neutrophil Ct (ANC) 4.57 x10^3/uL (1.56-6.13); BASOPHIL % 0.4 % (0.1-1.2); Basophil (Absolute #) 0.04 x10^3/uL (0.01-0.08); Eosinophil (Absolute #) 0.09 x10^3/uL (0.04-0.36); Hematocrit 40.2 % (34.1-44.9); Hemoglobin 13.3 g/dL (11.2-15.7); IMMATURE GRAN # 0.02 x10^3u/L (0.001-0.031); IMMATURE GRAN % 0.2 % (0.001-0.429); Lymphocytes % 42.1 % (19.3-51.7); Mean Cell Volume 93.3 fL (79.4-94.8); Mean Corpuscular Hemoglobin 30.9 pg (25.6-32.2); Mean Corpuscular Hgb Concent. 33.1 g/dL (32.2-35.5); Mean Platelet Volume 9.7 fL (9.4-12.3); Monocytes % 5.5 % (4.7-12.5); Neutrophil % 50.8 % (34.0-71.1); Platelet Count 304 x10^3/uL (182-369); Red Blood Count 4.31 x10^6/uL (3.93-5.22); Red Cell Distribution Width 13.1 % (11.7-14.4)
[2024-12-30] MEDS: Sodium Chloride 0.9% 1000 ML 1,000 ML IV SCH ×2 (10:12→20:07)
[2024-12-30 10:15] LABS: ALBUMIN 3.8 g/dL (3.5-5.0); ANION GAP 16.9 MEQ/L (5-15); BILIRUBIN,TOTAL 0.6 mg/dL (0.2-1.3); Calcium 9.1 mg/dL (8.4-10.2); Creatinine 1 1.04 mg/dL (0.52-1.04); EST GLOMERULAR FILTRATION RATE 57.1 ML/MIN; MAGNESIUM 1.9 mg/dL (1.6-2.3)
--- NOTE | 2024-12-30 11:22 | XRAY ---
Indication: Allergic reaction. Hypertension. Comparison: September 26, 2023 Portable chest unchanged again hyperinflated and clear. Heart not enlarged with left pacemaker. Bony thorax intact again with osteopenia and scoliosis. No new/acute findings.
--- NOTE | 2024-12-30 11:22 | XRAY ---
Indication: Vomiting. Multiple contiguous axial images obtained through the abdomen and pelvis without contrast. Comparison: April 06, 2022 Mild diffuse respiration artifact. Lung bases again demonstrates minimal discoid atelectasis/scarring. No infiltrate or effusion. Heart not enlarged. Again previous gastric bypass surgery, cholecystectomy, appendectomy, and hysterectomy. Noncontrasted stomach and bowel loops appear nonobstructed. Worsening moderate diffuse scattered colonic fecal debris with now rectal fecal impaction. Stable right lower renal cyst and splenic calcified granulomas. No free fluid/air. Remaining liver, pancreas, spleen, adrenal glands, kidneys, ureters, and bladder are unremarkable for noncontrast exam. Again minimal aortoiliac calcifications without AAA. Osseous structures intact again with osteopenia, minimal/mild degenerative changes throughout spine, and mild degenerative changes both hips. Impression: 1. Diffuse respiration artifact. 2. Worsening moderate diffuse fecal stasis with new rectal impaction. 3. Again chronic findings including right renal cyst, arteriosclerotic disease, chronic bony findings, and old granulomatous disease.
[2024-12-30 12:25] LABS: Appearance Clear (Clear); Bacteria Moderate /HPF (None Seen); Bilirubin Negative (Negative); Blood Negative (Negative); Epithelial Cells None Seen /HPF (None Seen); Glucose, Urine Negative (Negative); Ketones Negative (Negative); Leukocyte Esterase Trace (Negative); Nitrite Positive (Negative); Protein,Urine Dip Trace (Negative); RBC 0-2 /HPF (0-5); Specific Gravity 1.015 (1.005-1.030); Urobilinogen 0.2 mg/dL (0.2)
[2024-12-30] MEDS ORDERED: ROCEPHIN 1 GM / 100 ML NaCl 1 GM/100 ML IVPB IV ONE (12:54)
[2024-12-30] MEDS: ROCEPHIN 1 GM / 100 ML NaCl 1 GM/100 ML IVPB IV ONE (12:56)
--- NOTE | 2024-12-30 13:16 | XRAY ---
Indication: Elevated d-dimer. Multiple contiguous axial images obtained through the chest using 80 cc Isovue 370 contrast and PE protocol. Comparison: CT chest without contrast April 16, 2006. Good opacification pulmonary arteries to include lobar and segmental branches. No pulmonary embolus. Heart not enlarged with new left dual-lead pacemaker. Aorta is normal in course and caliber. New small subcarinal and right infrahilar calcified nodes. No pathologic mediastinal/hilar lymphadenopathy. Lungs again hyperinflated with stable mild right base subsegmental atelectasis/scarring. New minimal bilateral dependent atelectasis. No new pulmonary mass/nodule, infiltrate, or effusion. Bony thorax intact with osteopenia and minimal/mild degenerative changes throughout spine. Limited upper abdomen again demonstrates cholecystectomy clips. Impression: 1. Negative pulmonary embolus. No acute cardiopulmonary abnormalities. 2. Incidental chronic findings including right base atelectasis/scarring, chronic bony findings, and old granulomatous disease.
[2024-12-30] MEDS ORDERED: Zofran 4 MG/2 ML VIAL IV PRN (15:43)
--- NOTE | 2024-12-30 16:42 | PCM.HP ---
<TRACY VANESSA - Last Filed: 12/30/24 16:36> History of Present Illness - Chief Complaint Chief Complaint: Allergic reaction to Macrobid; Hypotension; UTI Date: 12/30/24 History of Present Illness: is a 74 year old female with PMHX of arrythmia, asthma, glaucoma, cataracts, OA, Ulcer, anxiety, depression, diverticulosis, TIA, Pacemaker, and chronic back pain. The patient reports experiencing dysuria for the past two weeks and was prescribed Macrobid one week ago but did not fill the prescription until recently. She took her first dose at 7 AM this morning and approximately one hour later developed itching, generalized weakness, nausea, vomiting (once), and a generalized rash. She denies chest pain, fever, chills, cough, headache, sore throat, or earache. She had a last bowel movement in the ER this morning. In the ER, she was treated with Solu-Medrol and Benadryl, resulting in resolution of the rash. A recent urine culture was positive for E. coli, voss- sensitive. Ceftriaxone, initiated in the ER, will be continued. D-dimer was elevated at 3.20; however, a chest CT was negative for pulmonary embolism. IV fluids will be started for dehydration. Tylenol and a heating pad were provided for chronic back pain. - Review of Systems Constitutional: No Fever, No Chills Eyes: No Symptoms Ears, Nose, & Throat: No Symptoms Respiratory: No Cough, No Short Of Breath Cardiac: No Chest Pain, No Edema, No Syncope Abdominal/Gastrointestinal: No Abdominal Pain, No Nausea, No Vomiting, No Diarrhea Genitourinary Symptoms: No Dysuria Musculoskeletal: Back Pain (chronic), No Neck Pain Skin: No Rash Neurological: No Dizziness, No Focal Weakness, No Sensory Changes Psychological: No Symptoms Endocrine: No Symptoms Hematologic/Lymphatic: No Symptoms Immunological/Allergic: No Symptoms Medications & Allergies Home Medications: Home Medication List Pantoprazole 20 mg [Protonix 20MG Tablet] 40 mg PO DAILY 03/08/17 [History Confirmed 12/30/24] estradioL [Estradiol] 0.5 mg PO DAILY 01/21/19 [History Confirmed 12/30/24] Bacillus Coagulans/Inulin [Probiotic with Prebiotic Caps] 1 each PO DAILY 12/30/24 [History Confirmed 12/30/24] Calcium Carb/Vit D3/Minerals [Calcium 600+D Plus Minerals Tb] 3 each PO DAILY 12/30/24 [History Confirmed 12/30/24] Cyanocobalamin (Vitamin B-12) [Vitamin B-12] 5,000 mcg PO DAILY 12/30/24 [History Confirmed 12/30/24] Metoprolol Tartrate 75 mg PO BID 12/30/24 [History Confirmed 12/30/24] Multivitamin 2 tab PO DAILY 12/30/24 [History Confirmed 12/30/24] Allergies/Adverse Reactions: Allergies Allergy/AdvReac Type Severity Reaction Status Date / Time Sulfa (Sulfonamide Allergy Intermediate Verified 12/30/24 09:05 Antibiotics) morphine Allergy Unknown Verified 12/30/24 09:05 nitrofurantoin Allergy Verified 12/30/24 09:06 [From Macrobid] - Past Medical History Past Medical History: Yes Neurological History: TIA ENT History: Cataracts, Glaucoma, Other Cardiac History: Arrhythmia, Other Respiratory History: Asthma, COPD Endocrine Medical History: No Pertinent History Musculoskelatal History: Osteoporosis GI Medical History: Diverticulosis, Ulcer History: Other Pyscho-Social History: Anxiety, Depression Reproductive Disorders: Abnormal Uterine Bleeding Comment: 2 TIAs, seizures, Pacemaker, cardiac arrest, OA and buldging discs in the neck and Lower back, sciatica on rt and lt. - Past Surgical History Past Surgical History: Yes Neuro Surgical History: No Pertinent History Cardiac History: Pacemaker, Other Respiratory Surgery: No Pertinent History, Other GI Surgical History: Appendectomy, Cholecystectomy Musculskeletal Surgical Hx: Joint Replacement, Orthopedic Surgery, Other Female Surgical History: Hysterectomy, Other Other Surgical History: EYE SURGERY L KNEE SURGERY/replacement HAND SURGERY. BARIATRIC SURGERY. bladder tie up x 2. sinus surgery. tonsilectomy. left knee surgery. carpal tunnel surgery. carpel tunnel x 2. patient states she has in surgery before, and has problems waking up from anesthesia Significant Family History: no pertinent family hx - Social History Smoking Status: Never smoker Exposure to second hand smoke: Yes Alcohol: None Drug Use: none - Social Determinants of Health Will the patient participate in the screening: Unable to obtain - Physical Exam Vital Signs: Vital Signs - 24 hr Temp Pulse Resp BP BP Pulse Ox 12/30/24 14:15 60 12 135/62 100 12/30/24 14:10 60 16 137/72 92 L 12/30/24 14:05 63 19 113/84 100 12/30/24 14:01 60 14 135/63 100 12/30/24 13:55 61 18 123/59 100 12/30/24 13:50 60 15 122/54 100 12/30/24 13:45 60 20 128/62 100 12/30/24 13:40 60 16 114/60 100 12/30/24 13:35 60 17 132/58 100 12/30/24 13:31 60 19 123/55 100 12/30/24 13:25 61 22 126/59 100 12/30/24 13:20 60 11 L 118/61 100 12/30/24 13:15 60 8 L 127/62 100 12/30/24 13:00 63 13 121/65 100 12/30/24 12:55 60 26 H 131/55 100 12/30/24 12:30 62 19 110/76 100 12/30/24 12:25 60 16 101/54 100 12/30/24 12:20 60 17 102/52 100 12/30/24 12:15 60 17 110/51 100 12/30/24 12:10 60 13 112/58 100 12/30/24 12:05 60 13 114/57 100 12/30/24 12:00 63 14 108/64 100 12/30/24 11:55 60 16 116/69 100 12/30/24 11:50 60 14 113/52 100 12/30/24 11:45 60 10 L 114/57 100 12/30/24 11:40 60 14 103/58 100 12/30/24 11:35 60 18 114/59 100 12/30/24 11:30 63 14 103/56 100 12/30/24 11:25 62 13 108/56 100 12/30/24 11:20 61 14 105/55 100 12/30/24 11:15 64 11 L 107/61 100 12/30/24 11:10 64 13 110/63 100 12/30/24 11:05 62 19 117/69 100 12/30/24 11:01 65 12 134/74 100 12/30/24 11:00 61 16 100 12/30/24 10:57 61 16 100 12/30/24 10:50 62 16 111/73 100 02/21/25 10:45 61 16 111/69 100 12/30/24 10:40 60 22 116/67 100 12/30/24 10:35 62 16 125/58 100 12/30/24 10:30 62 16 132/61 100 12/30/24 10:25 63 16 113/63 100 12/30/24 10:21 61 18 125/53 100 12/30/24 10:16 61 17 101/57 100 12/30/24 10:11 62 15 107/83 100 12/30/24 10:09 62 17 100/52 93 L 12/30/24 09:54 87/31 12/30/24 09:53 60 24 100 12/30/24 09:52 60 18 99 12/30/24 09:46 60 17 136/54 100 12/30/24 09:44 60 17 135/114 99 12/30/24 09:40 60 19 95/51 100 12/30/24 09:35 66 10 L 89/49 12/30/24 09:31 60 14 89/51 12/30/24 09:00 97 F 60 12 70/20 88 L General Appearance: no apparent distress, alert Neurologic Exam: alert, oriented x 3, cooperative, normal mood/affect, nml cerebellar function, nml station & gait, sensation nml, No motor deficits Eye Exam: PERRL/EOMI, eyes nml inspection Ears, Nose, Throat Exam: normal ENT inspection, TMs normal, pharynx normal, moist mucous membranes Neck Exam: normal inspection, non-tender, supple, full range of motion Respiratory Exam: normal breath sounds, lungs clear, No respiratory distress Cardiovascular Exam: regular rate/rhythm, normal heart sounds, normal peripheral pulses Gastrointestinal/Abdomen Exam: soft, normal bowel sounds, No tenderness, No mass Back Exam: normal inspection, normal range of motion, No CVA tenderness, No vertebral tenderness Extremity Exam: normal inspection, normal range of motion, pelvis stable Skin Exam: normal color, warm, dry, No rash Lymphatic Exam: No adenopathy Results - Labs Lab/Micro Results: Lab Results-Last 24 Hours 12/30/24 12/30/24 12/30/24 Range/Units 09:12 09:12 09:13 WBC 9.0 (3.98-10.04) x10^3/uL RBC 4.31 (3.93-5.22) x10^6/uL Hgb 13.3 (11.2-15.7) g/dL Hct 40.2 (34.1-44.9) % MCV 93.3 (79.4-94.8) fL MCH 30.9 (25.6-32.2) pg MCHC 33.1 (32.2-35.5) g/dL RDW 13.1 (11.7-14.4) % Plt Count 304 (182-369) x10^3/uL MPV 9.7 (9.4-12.3) fL Gran % 50.8 (34.0-71.1) % Immature Gran % (Auto) 0.2 (0.001-0.429) % Nucleat RBC Rel Count 0.0 (0.00-0.2) % Eos # (Auto) 0.09 (0.04-0.36) x10^3/uL Immature Gran # (Auto) 0.02 (0.001-0.031) x10^3u/L Absolute Lymphs (auto) 3.80 H (1.18-3.74) x10^3/uL Absolute Monos (auto) 0.50 (0.24-0.86) x10^3/uL Absolute Nucleated RBC 0.00 (0.00-0.012) x10^3u/L Lymphocytes % 42.1 (19.3-51.7) % Monocytes % 5.5 (4.7-12.5) % Eosinophils % 1.0 (0.7-5.8) % Basophils % 0.4 (0.1-1.2) % Absolute Granulocytes 4.57 (1.56-6.13) x10^3/uL Basophils # 0.04 (0.01-0.08) x10^3/uL D-Dimer (0.0-0.50) mg/L Puncture Site RIGHT RADIAL pCO2 38 (35-45) mmHg pO2 168 H* (75-100) mmHg Base Excess -5.4 L (-2.0-2.0) O2 Saturation 98.2 (94-100) g/dF ABG pH 7.33 L (7.35-7.45) ABG HCO3 20.0 L (22-28) ABG O2 Sat (Measured) 100.0 (95-100) % Errol Test y A-a Gradient 27 a/A Ratio 0.86 Hemoglobin 13.4 Carboxyhemoglobin 1.3 (0.0-6.9) % THgb Methemoglobin 0.5 L (1.4-1.5) % Potassium 4.7 (3.5-5.1) Temperature 37.0 C POC O2 Flow Rate 34 % Sodium (135-145) mmol/L Chloride (98-107) mmol/L Carbon Dioxide (22-30) mmol/L Anion Gap (5-15) MEQ/L BUN (7-17) mg/dL Creatinine (0.52-1.04) mg/dL Estimated GFR ML/MIN Glucose (74-106) mg/dL Lactic Acid 2.4 H (0.4-2.0) Calcium (8.4-10.2) mg/dL Magnesium (1.6-2.3) mg/dL Total Bilirubin (0.2-1.3) mg/dL AST (14-36) U/L ALT (0-35) U/L Alkaline Phosphatase (38-126) U/L Troponin I (0.000-0.033) ng/mL Serum Total Protein (6.3-8.2) g/dL Albumin (3.5-5.0) g/dL Amylase (30-110) U/L Lipase (23-300) U/L Urine Color (Yellow) Urine Appearance (Clear) Urine pH (4.6-8.0) Ur Specific [place] (1.005-1.030) Urine Protein (Negative) Urine Glucose (UA) (Negative) mg/dL Urine Ketones (Negative) Urine Blood (Negative) Urine Nitrite (Negative) Urine Bilirubin (Negative) Urine Urobilinogen (0.2) mg/dL Ur Leukocyte Esterase (Negative) U Hyaline Cast (Auto) (0-2) /LPF Urine Microscopic RBC (0-5) /HPF Urine Microscopic WBC (0-5) /HPF Ur Epithelial Cells (None Seen) /HPF Urine Bacteria (None Seen) /HPF Urine Culture Reflexed (NO) 12/30/24 12/30/24 12/30/24 Range/Units 10:01 10:01 10:01 WBC (3.98-10.04) x10^3/uL RBC (3.93-5.22) x10^6/uL Hgb (11.2-15.7) g/dL Hct (34.1-44.9) % MCV (79.4-94.8) fL MCH (25.6-32.2) pg MCHC (32.2-35.5) g/dL RDW (11.7-14.4) % Plt Count (182-369) x10^3/uL MPV (9.4-12.3) fL Gran % (34.0-71.1) % Immature Gran % (Auto) (0.001-0.429) % Nucleat RBC Rel Count (0.00-0.2) % Eos # (Auto) (0.04-0.36) x10^3/uL Immature Gran # (Auto) (0.001-0.031) x10^3u/L Absolute Lymphs (auto) (1.18-3.74) x10^3/uL Absolute Monos (auto) (0.24-0.86) x10^3/uL Absolute Nucleated RBC (0.00-0.012) x10^3u/L Lymphocytes % (19.3-51.7) % Monocytes % (4.7-12.5) % Eosinophils % (0.7-5.8) % Basophils % (0.1-1.2) % Absolute Granulocytes (1.56-6.13) x10^3/uL Basophils # (0.01-0.08) x10^3/uL D-Dimer 3.20 H* (0.0-0.50) mg/L Puncture Site pCO2 (35-45) mmHg pO2 (75-100) mmHg Base Excess (-2.0-2.0) O2 Saturation (94-100) g/dF ABG pH (7.35-7.45) ABG HCO3 (22-28) ABG O2 Sat (Measured) (95-100) % Errol Test A-a Gradient a/A Ratio Hemoglobin Carboxyhemoglobin (0.0-6.9) % THgb Methemoglobin (1.4-1.5) % Potassium 5.0 (3.5-5.1) Temperature C POC O2 Flow Rate % Sodium 139 (135-145) mmol/L Chloride 108 H (98-107) mmol/L Carbon Dioxide 19 L (22-30) mmol/L Anion Gap 16.9 H (5-15) MEQ/L BUN 22 H (7-17) mg/dL Creatinine 1.04 (0.52-1.04) mg/dL Estimated GFR 57.1 ML/MIN Glucose 129 H (74-106) mg/dL Lactic Acid (0.4-2.0) Calcium 9.1 (8.4-10.2) mg/dL Magnesium 1.9 (1.6-2.3) mg/dL Total Bilirubin 0.60 (0.2-1.3) mg/dL AST 47 H (14-36) U/L ALT 38 H (0-35) U/L Alkaline Phosphatase 90 (38-126) U/L Troponin I < 0.012 (0.000-0.033) ng/mL Serum Total Protein 6.0 L (6.3-8.2) g/dL Albumin 3.8 (3.5-5.0) g/dL Amylase 95 (30-110) U/L Lipase 219 (23-300) U/L Urine Color (Yellow) Urine Appearance (Clear) Urine pH (4.6-8.0) Ur Specific [place] (1.005-1.030) Urine Protein (Negative) Urine Glucose (UA) (Negative) mg/dL Urine Ketones (Negative) Urine Blood (Negative) Urine Nitrite (Negative) Urine Bilirubin (Negative) Urine Urobilinogen (0.2) mg/dL Ur Leukocyte Esterase (Negative) U Hyaline Cast (Auto) (0-2) /LPF Urine Microscopic RBC (0-5) /HPF Urine Microscopic WBC (0-5) /HPF Ur Epithelial Cells (None Seen) /HPF Urine Bacteria (None Seen) /HPF Urine Culture Reflexed (NO) 12/30/24 12/30/24 12/30/24 Range/Units 11:27 13:14 13:26 WBC (3.98-10.04) x10^3/uL RBC (3.93-5.22) x10^6/uL Hgb (11.2-15.7) g/dL Hct (34.1-44.9) % MCV (79.4-94.8) fL MCH (25.6-32.2) pg MCHC (32.2-35.5) g/dL RDW (11.7-14.4) % Plt Count (182-369) x10^3/uL MPV (9.4-12.3) fL Gran % (34.0-71.1) % Immature Gran % (Auto) (0.001-0.429) % Nucleat RBC Rel Count (0.00-0.2) % Eos # (Auto) (0.04-0.36) x10^3/uL Immature Gran # (Auto) (0.001-0.031) x10^3u/L Absolute Lymphs (auto) (1.18-3.74) x10^3/uL Absolute Monos (auto) (0.24-0.86) x10^3/uL Absolute Nucleated RBC (0.00-0.012) x10^3u/L Lymphocytes % (19.3-51.7) % Monocytes % (4.7-12.5) % Eosinophils % (0.7-5.8) % Basophils % (0.1-1.2) % Absolute Granulocytes (1.56-6.13) x10^3/uL Basophils # (0.01-0.08) x10^3/uL D-Dimer (0.0-0.50) mg/L Puncture Site pCO2 (35-45) mmHg pO2 (75-100) mmHg Base Excess (-2.0-2.0) O2 Saturation (94-100) g/dF ABG pH (7.35-7.45) ABG HCO3 (22-28) ABG O2 Sat (Measured) (95-100) % Errol Test A-a Gradient a/A Ratio Hemoglobin Carboxyhemoglobin (0.0-6.9) % THgb Methemoglobin (1.4-1.5) % Potassium (3.5-5.1) Temperature C POC O2 Flow Rate % Sodium (135-145) mmol/L Chloride (98-107) mmol/L Carbon Dioxide (22-30) mmol/L Anion Gap (5-15) MEQ/L BUN (7-17) mg/dL Creatinine (0.52-1.04) mg/dL Estimated GFR ML/MIN Glucose (74-106) mg/dL Lactic Acid 1.4 (0.4-2.0) Calcium (8.4-10.2) mg/dL Magnesium (1.6-2.3) mg/dL Total Bilirubin (0.2-1.3) mg/dL AST (14-36) U/L ALT (0-35) U/L Alkaline Phosphatase (38-126) U/L Troponin I 0.016 (0.000-0.033) ng/mL Serum Total Protein (6.3-8.2) g/dL Albumin (3.5-5.0) g/dL Amylase (30-110) U/L Lipase (23-300) U/L Urine Color Dark Yellow A (Yellow) Urine Appearance Clear (Clear) Urine pH 5.0 (4.6-8.0) Ur Specific [place] 1.015 (1.005-1.030) Urine Protein Trace A (Negative) Urine Glucose (UA) Negative (Negative) mg/dL Urine Ketones Negative (Negative) Urine Blood Negative (Negative) Urine Nitrite Positive A (Negative) Urine Bilirubin Negative (Negative) Urine Urobilinogen 0.2 (0.2) mg/dL Ur Leukocyte Esterase Trace A (Negative) U Hyaline Cast (Auto) 3-5 A (0-2) /LPF Urine Microscopic RBC 0-2 (0-5) /HPF Urine Microscopic WBC 6-10 A (0-5) /HPF Ur Epithelial Cells None Seen (None Seen) /HPF Urine Bacteria Moderate A (None Seen) /HPF Urine Culture Reflexed YES (NO) - Radiology Impressions Radiology Exams & Impressions: Radiology Procedures Category Date Time Status ABDOMEN AND PELVIS W/0 CONTRAS [CT] Stat Exams 12/30/24 09:15 Completed CHEST 1 VIEW (PORTABLE) Stat Exams 12/30/24 09:14 Completed CHEST WITH CONTRAST [CT] Stat Exams 12/30/24 10:29 Completed - Other Procedures and Tests Respiratory Therapy 12/30/24 18:00 EKG ROUTINE Assessment/Plan (1) Urinary tract infection Current Visit: Yes Status: Acute Qualifiers: Encounter type: subsequent encounter Assessment & Plan: - previous UC voss-sensitive - repeat UC ordered in ER - Ceftriaxone IV - IVF - BC x2 pending Code(s): N39.0 - URINARY TRACT INFECTION, SITE NOT SPECIFIED (2) Allergic reaction caused by a drug Current Visit: Yes Status: Acute Qualifiers: Encounter type: initial encounter Qualified Code(s): T78.40XA - Allergy, unspecified, initial encounter Assessment & Plan: - Solumerol, benadryl gave in ER - Rash resolved since admission - PRN meds if needed - caused by macrobid- added to allergy list - tele Code(s): T78.40XA - ALLERGY, UNSPECIFIED, INITIAL ENCOUNTER (3) Dehydration Current Visit: Yes Status: Acute Assessment & Plan: - IVF Code(s): E86.0 - DEHYDRATION (4) Elevated d-dimer Current Visit: Yes Status: Acute Assessment & Plan: - d-dimer 3.20 - CT negative for PE VTE: SCD's PPI: Protonix Next of KIN: Spouse- Dustin D/C plan: tomorrow Code status:Full Code(s): R79.89 - OTHER SPECIFIED ABNORMAL FINDINGS OF BLOOD CHEMISTRY (5) Chronic back pain Current Visit: Yes Status: Chronic Qualifiers: Back pain location: low back pain Back pain laterality: midline Sciatica presence: without sciatica Qualified Code(s): M54.50 - Low back pain, unspecif ied; G89.29 - Other chronic pain Assessment & Plan: - Tylenol as she takes at home - heating pad Code(s): M54.9 - DORSALGIA, UNSPECIFIED; G89.29 - OTHER CHRONIC PAIN (6) HTN (hypertension) Current Visit: Yes Status: Chronic Qualifiers: Hypertension type: primary hypertension Qualified Code(s): I10 - Essential (primary) hypertension Assessment & Plan: - BP stable - Continue home BP meds Code(s): I10 - ESSENTIAL (PRIMARY) HYPERTENSION (7) Constipation Current Visit: Yes Status: Resolved Qualifiers: Constipation type: chronic idiopathic constipation Qualified Code(s): K59.04 - Chronic idiopathic constipation Assessment & Plan: - resolved in ER - As seen on CT abd/pelvis Code(s): K59.00 - CONSTIPATION, UNSPECIFIED Telemedicine Encounter - Telemedicine Encounter Telemedicine Encounter: "The entirety of this encounter was performed via Telemedicine" This visit was performed using real-time audio and video connection between my location and thepatients locationwith the assistance of a surrogateat the patients location. Written or verbal consent was obtained from the patient/guardian to perform this visit usingsynchronoustelemedicine technology. Any patient questions regarding the telemedicine interaction were answered. <LUCIANA VASQUEZ - Last Filed: 12/30/24 21:44> History of Present Illness - Chief Complaint History of Present Illness: is a 74 year old female. - Physical Exam Vital Signs: Vital Signs - 24 hr Temp Pulse Resp BP BP Pulse Ox 12/30/24 20:00 97.8 F 68 18 91/51 98 12/30/24 19:00 68 16 98 12/30/24 18:15 64 16 95 12/30/24 16:40 98.0 F 61 20 136/58 100 12/30/24 15:43 98.0 F 61 20 136/58 100 12/30/24 14:15 60 12 135/62 100 12/30/24 14:10 60 16 137/72 92 L 12/30/24 14:05 63 19 113/84 100 12/30/24 14:01 60 14 135/63 100 12/30/24 13:55 61 18 123/59 100 12/30/24 13:50 60 15 122/54 100 12/30/24 13:45 60 20 128/62 100 12/30/24 13:40 60 16 114/60 100 12/30/24 13:35 60 17 132/58 100 12/30/24 13:31 60 19 123/55 100 12/30/24 13:25 61 22 126/59 100 12/30/24 13:20 60 11 L 118/61 100 12/30/24 13:15 60 8 L 127/62 100 12/30/24 13:00 63 13 121/65 100 12/30/24 12:55 60 26 H 131/55 100 12/30/24 12:30 62 19 110/76 100 12/30/24 12:25 60 16 101/54 100 12/30/24 12:20 60 17 102/52 100 12/30/24 12:15 60 17 110/51 100 12/30/24 12:10 60 13 112/58 100 12/30/24 12:05 60 13 114/57 100 12/30/24 12:00 63 14 108/64 100 12/30/24 11:55 60 16 116/69 100 12/30/24 11:50 60 14 113/52 100 12/30/24 11:45 60 10 L 114/57 100 12/30/24 11:40 60 14 103/58 100 12/30/24 11:35 60 18 114/59 100 12/30/24 11:30 63 14 103/56 100 12/30/24 11:25 62 13 108/56 100 12/30/24 11:20 61 14 105/55 100 12/30/24 11:15 64 11 L 107/61 100 12/30/24 11:10 64 13 110/63 100 12/30/24 11:05 62 19 117/69 100 12/30/24 11:01 65 12 134/74 100 12/30/24 11:00 61 16 100 12/30/24 10:57 61 16 100 12/30/24 10:50 62 16 111/73 100 12/30/24 10:45 61 16 111/69 100 12/30/24 10:40 60 22 116/67 100 12/30/24 10:35 62 16 125/58 100 12/30/24 10:30 62 16 132/61 100 12/30/24 10:25 63 16 113/63 100 12/30/24 10:21 61 18 125/53 100 12/30/24 10:16 61 17 101/57 100 12/30/24 10:11 62 15 107/83 100 12/30/24 10:09 62 17 100/52 93 L 12/30/24 09:54 87/31 12/30/24 09:53 60 24 100 12/30/24 09:52 60 18 99 12/30/24 09:46 60 17 136/54 100 12/30/24 09:44 60 17 135/114 99 12/30/24 09:40 60 19 95/51 100 12/30/24 09:35 66 10 L 89/49 12/30/24 09:31 60 14 89/51 12/30/24 09:00 97 F 60 12 70/20 88 L Results - Labs Lab/Micro Results: Lab Results-Last 24 Hours 12/30/24 12/30/24 12/30/24 Range/Units 09:12 09:12 09:13 WBC 9.0 (3.98-10.04) x10^3/uL RBC 4.31 (3.93-5.22) x10^6/uL Hgb 13.3 (11.2-15.7) g/dL Hct 40.2 (34.1-44.9) % MCV 93.3 (79.4-94.8) fL MCH 30.9 (25.6-32.2) pg MCHC 33.1 (32.2-35.5) g/dL RDW 13.1 (11.7-14.4) % Plt Count 304 (182-369) x10^3/uL MPV 9.7 (9.4-12.3) fL Gran % 50.8 (34.0-71.1) % Immature Gran % (Auto) 0.2 (0.001-0.429) % Nucleat RBC Rel Count 0.0 (0.00-0.2) % Eos # (Auto) 0.09 (0.04-0.36) x10^3/uL Immature Gran # (Auto) 0.02 (0.001-0.031) x10^3u/L Absolute Lymphs (auto) 3.80 H (1.18-3.74) x10^3/uL Absolute Monos (auto) 0.50 (0.24-0.86) x10^3/uL Absolute Nucleated RBC 0.00 (0.00-0.012) x10^3u/L Lymphocytes % 42.1 (19.3-51.7) % Monocytes % 5.5 (4.7-12.5) % Eosinophils % 1.0 (0.7-5.8) % Basophils % 0.4 (0.1-1.2) % Absolute Granulocytes 4.57 (1.56-6.13) x10^3/uL Basophils # 0.04 (0.01-0.08) x10^3/uL D-Dimer (0.0-0.50) mg/L Puncture Site RIGHT RADIAL pCO2 38 (35-45) mmHg pO2 168 H* (75-100) mmHg Base Excess -5.4 L (-2.0-2.0) O2 Saturation 98.2 (94-100) g/dF ABG pH 7.33 L (7.35-7.45) ABG HCO3 20.0 L (22-28) ABG O2 Sat (Measured) 100.0 (95-100) % Errol Test y A-a Gradient 27 a/A Ratio 0.86 Hemoglobin 13.4 Carboxyhemoglobin 1.3 (0.0-6.9) % THgb Methemoglobin 0.5 L (1.4-1.5) % Potassium 4.7 (3.5-5.1) Temperature 37.0 C POC O2 Flow Rate 34 % Sodium (135-145) mmol/L Chloride (98-107) mmol/L Carbon Dioxide (22-30) mmol/L Anion Gap (5-15) MEQ/L BUN (7-17) mg/dL Creatinine (0.52-1.04) mg/dL Estimated GFR ML/MIN Glucose (74-106) mg/dL Lactic Acid 2.4 H (0.4-2.0) Calcium (8.4-10.2) mg/dL Magnesium (1.6-2.3) mg/dL Total Bilirubin (0.2-1.3) mg/dL AST (14-36) U/L ALT (0-35) U/L Alkaline Phosphatase (38-126) U/L Troponin I (0.000-0.033) ng/mL Serum Total Protein (6.3-8.2) g/dL Albumin (3.5-5.0) g/dL Amylase (30-110) U/L Lipase (23-300) U/L Urine Color (Yellow) Urine Appearance (Clear) Urine pH (4.6-8.0) Ur Specific [place] (1.005-1.030) Urine Protein (Negative) Urine Glucose (UA) (Negative) mg/dL Urine Ketones (Negative) Urine Blood (Negative) Urine Nitrite (Negative) Urine Bilirubin (Negative) Urine Urobilinogen (0.2) mg/dL Ur Leukocyte Esterase (Negative) U Hyaline Cast (Auto) (0-2) /LPF Urine Microscopic RBC (0-5) /HPF Urine Microscopic WBC (0-5) /HPF Ur Epithelial Cells (None Seen) /HPF Urine Bacteria (None Seen) /HPF Urine Culture Reflexed (NO) 12/30/24 12/30/24 12/30/24 Range/Units 10:01 10:01 10:01 WBC (3.98-10.04) x10^3/uL RBC (3.93-5.22) x10^6/uL Hgb (11.2-15.7) g/dL Hct (34.1-44.9) % MCV (79.4-94.8) fL MCH (25.6-32.2) pg MCHC (32.2-35.5) g/dL RDW (11.7-14.4) % Plt Count (182-369) x10^3/uL MPV (9.4-12.3) fL Gran % (34.0-71.1) % Immature Gran % (Auto) (0.001-0.429) % Nucleat RBC Rel Count (0.00-0.2) % Eos # (Auto) (0.04-0.36) x10^3/uL Immature Gran # (Auto) (0.001-0.031) x10^3u/L Absolute Lymphs (auto) (1.18-3.74) x10^3/uL Absolute Monos (auto) (0.24-0.86) x10^3/uL Absolute Nucleated RBC (0.00-0.012) x10^3u/L Lymphocytes % (19.3-51.7) % Monocytes % (4.7-12.5) % Eosinophils % (0.7-5.8) % Basophils % (0.1-1.2) % Absolute Granulocytes (1.56-6.13) x10^3/uL Basophils # (0.01-0.08) x10^3/uL D-Dimer 3.20 H* (0.0-0.50) mg/L Puncture Site pCO2 (35-45) mmHg pO2 (75-100) mmHg Base Excess (-2.0-2.0) O2 Saturation (94-100) g/dF ABG pH (7.35-7.45) ABG HCO3 (22-28) ABG O2 Sat (Measured) (95-100) % Errol Test A-a Gradient a/A Ratio Hemoglobin Carboxyhemoglobin (0.0-6.9) % THgb Methemoglobin (1.4-1.5) % Potassium 5.0 (3.5-5.1) Temperature C POC O2 Flow Rate % Sodium 139 (135-145) mmol/L Chloride 108 H (98-107) mmol/L Carbon Dioxide 19 L (22-30) mmol/L Anion Gap 16.9 H (5-15) MEQ/L BUN 22 H (7-17) mg/dL Creatinine 1.04 (0.52-1.04) mg/dL Estimated GFR 57.1 ML/MIN Glucose 129 H (74-106) mg/dL Lactic Acid (0.4-2.0) Calcium 9.1 (8.4-10.2) mg/dL Magnesium 1.9 (1.6-2.3) mg/dL Total Bilirubin 0.60 (0.2-1.3) mg/dL AST 47 H (14-36) U/L ALT 38 H (0-35) U/L Alkaline Phosphatase 90 (38-126) U/L Troponin I < 0.012 (0.000-0.033) ng/mL Serum Total Protein 6.0 L (6.3-8.2) g/dL Albumin 3.8 (3.5-5.0) g/dL Amylase 95 (30-110) U/L Lipase 219 (23-300) U/L Urine Color (Yellow) Urine Appearance (Clear) Urine pH (4.6-8.0) Ur Specific [place] (1.005-1.030) Urine Protein (Negative) Urine Glucose (UA) (Negative) mg/dL Urine Ketones (Negative) Urine Blood (Negative) Urine Nitrite (Negative) Urine Bilirubin (Negative) Urine Urobilinogen (0.2) mg/dL Ur Leukocyte Esterase (Negative) U Hyaline Cast (Auto) (0-2) /LPF Urine Microscopic RBC (0-5) /HPF Urine Microscopic WBC (0-5) /HPF Ur Epithelial Cells (None Seen) /HPF Urine Bacteria (None Seen) /HPF Urine Culture Reflexed (NO) 12/30/24 12/30/24 12/30/24 Range/Units 11:27 13:14 13:26 WBC (3.98-10.04) x10^3/uL RBC (3.93-5.22) x10^6/uL Hgb (11.2-15.7) g/dL Hct (34.1-44.9) % MCV (79.4-94.8) fL MCH (25.6-32.2) pg MCHC (32.2-35.5) g/dL RDW (11.7-14.4) % Plt Count (182-369) x10^3/uL MPV (9.4-12.3) fL Gran % (34.0-71.1) % Immature Gran % (Auto) (0.001-0.429) % Nucleat RBC Rel Count (0.00-0.2) % Eos # (Auto) (0.04-0.36) x10^3/uL Immature Gran # (Auto) (0.001-0.031) x10^3u/L Absolute Lymphs (auto) (1.18-3.74) x10^3/uL Absolute Monos (auto) (0.24-0.86) x10^3/uL Absolute Nucleated RBC (0.00-0.012) x10^3u/L Lymphocytes % (19.3-51.7) % Monocytes % (4.7-12.5) % Eosinophils % (0.7-5.8) % Basophils % (0.1-1.2) % Absolute Granulocytes (1.56-6.13) x10^3/uL Basophils # (0.01-0.08) x10^3/uL D-Dimer (0.0-0.50) mg/L Puncture Site pCO2 (35-45) mmHg pO2 (75-100) mmHg Base Excess (-2.0-2.0) O2 Saturation (94-100) g/dF ABG pH (7.35-7.45) ABG HCO3 (22-28) ABG O2 Sat (Measured) (95-100) % Errol Test A-a Gradient a/A Ratio Hemoglobin Carboxyhemoglobin (0.0-6.9) % THgb Methemoglobin (1.4-1.5) % Potassium (3.5-5.1) Temperature C POC O2 Flow Rate % Sodium (135-145) mmol/L Chloride (98-107) mmol/L Carbon Dioxide (22-30) mmol/L Anion Gap (5-15) MEQ/L BUN (7-17) mg/dL Creatinine (0.52-1.04) mg/dL Estimated GFR ML/MIN Glucose (74-106) mg/dL Lactic Acid 1.4 (0.4-2.0) Calcium (8.4-10.2) mg/dL Magnesium (1.6-2.3) mg/dL Total Bilirubin (0.2-1.3) mg/dL AST (14-36) U/L ALT (0-35) U/L Alkaline Phosphatase (38-126) U/L Troponin I 0.016 (0.000-0.033) ng/mL Serum Total Protein (6.3-8.2) g/dL Albumin (3.5-5.0) g/dL Amylase (30-110) U/L Lipase (23-300) U/L Urine Color Dark Yellow A (Yellow) Urine Appearance Clear (Clear) Urine pH 5.0 (4.6-8.0) Ur Specific [place] 1.015 (1.005-1.030) Urine Protein Trace A (Negative) Urine Glucose (UA) Negative (Negative) mg/dL Urine Ketones Negative (Negative) Urine Blood Negative (Negative) Urine Nitrite Positive A (Negative) Urine Bilirubin Negative (Negative) Urine Urobilinogen 0.2 (0.2) mg/dL Ur Leukocyte Esterase Trace A (Negative) U Hyaline Cast (Auto) 3-5 A (0-2) /LPF Urine Microscopic RBC 0-2 (0-5) /HPF Urine Microscopic WBC 6-10 A (0-5) /HPF Ur Epithelial Cells None Seen (None Seen) /HPF Urine Bacteria Moderate A (None Seen) /HPF Urine Culture Reflexed YES (NO) 12/30/24 Range/Units 17:25 WBC (3.98-10.04) x10^3/uL RBC (3.93-5.22) x10^6/uL Hgb (11.2-15.7) g/dL Hct (34.1-44.9) % MCV (79.4-94.8) fL MCH (25.6-32.2) pg MCHC (32.2-35.5) g/dL RDW (11.7-14.4) % Plt Count (182-369) x10^3/uL MPV (9.4-12.3) fL Gran % (34.0-71.1) % Immature Gran % (Auto) (0.001-0.429) % Nucleat RBC Rel Count (0.00-0.2) % Eos # (Auto) (0.04-0.36) x10^3/uL Immature Gran # (Auto) (0.001-0.031) x10^3u/L Absolute Lymphs (auto) (1.18-3.74) x10^3/uL Absolute Monos (auto) (0.24-0.86) x10^3/uL Absolute Nucleated RBC (0.00-0.012) x10^3u/L Lymphocytes % (19.3-51.7) % Monocytes % (4.7-12.5) % Eosinophils % (0.7-5.8) % Basophils % (0.1-1.2) % Absolute Granulocytes (1.56-6.13) x10^3/uL Basophils # (0.01-0.08) x10^3/uL D-Dimer (0.0-0.50) mg/L Puncture Site pCO2 (35-45) mmHg pO2 (75-100) mmHg Base Excess (-2.0-2.0) O2 Saturation (94-100) g/dF ABG pH (7.35-7.45) ABG HCO3 (22-28) ABG O2 Sat (Measured) (95-100) % Errol Test A-a Gradient a/A Ratio Hemoglobin Carboxyhemoglobin (0.0-6.9) % THgb Methemoglobin (1.4-1.5) % Potassium (3.5-5.1) Temperature C POC O2 Flow Rate % Sodium (135-145) mmol/L Chloride (98-107) mmol/L Carbon Dioxide (22-30) mmol/L Anion Gap (5-15) MEQ/L BUN (7-17) mg/dL Creatinine (0.52-1.04) mg/dL Estimated GFR ML/MIN Glucose (74-106) mg/dL Lactic Acid (0.4-2.0) Calcium (8.4-10.2) mg/dL Magnesium (1.6-2.3) mg/dL Total Bilirubin (0.2-1.3) mg/dL AST (14-36) U/L ALT (0-35) U/L Alkaline Phosphatase (38-126) U/L Troponin I 0.015 (0.000-0.033) ng/mL Serum Total Protein (6.3-8.2) g/dL Albumin (3.5-5.0) g/dL Amylase (30-110) U/L Lipase (23-300) U/L Urine Color (Yellow) Urine Appearance (Clear) Urine pH (4.6-8.0) Ur Specific [place] (1.005-1.030) Urine Protein (Negative) Urine Glucose (UA) (Negative) mg/dL Urine Ketones (Negative) Urine Blood (Negative) Urine Nitrite (Negative) Urine Bilirubin (Negative) Urine Urobilinogen (0.2) mg/dL Ur Leukocyte Esterase (Negative) U Hyaline Cast (Auto) (0-2) /LPF Urine Microscopic RBC (0-5) /HPF Urine Microscopic WBC (0-5) /HPF Ur Epithelial Cells (None Seen) /HPF Urine Bacteria (None Seen) /HPF Urine Culture Reflexed (NO) - Radiology Impressions Radiology Exams & Impressions: Radiology Procedures Category Date Time Status ABDOMEN AND PELVIS W/0 CONTRAS [CT] Stat Exams 12/30/24 09:15 Completed CHEST 1 VIEW (PORTABLE) Stat Exams 12/30/24 09:14 Completed CHEST WITH CONTRAST [CT] Stat Exams 12/30/24 10:29 Completed - Other Procedures and Tests Respiratory Therapy 12/31/24 07:00 Respiratory Therapy Assessment DAILY Telemedicine Encounter - Telemedicine Encounter Telemedicine Encounter: "The entirety of this encounter was performed via Telemedicine" This visit was performed using real-time audio and video connection between my location and thepatients locationwith the assistance of a surrogateat the patients location. Written or verbal consent was obtained from the patient/guardian to perform this visit using[facility] technology. Any patient questions regarding the telemedicine interaction were answered. ASIF Encounter - ASIF Encounter Attestation ASIF Encounter Attestation: "DAREN Bedoya andterryiscussed pertinent aspects of their care with Tracy Garcia agree with the history, physical exam (any modifications based on my personal exam will be noted below), assessment, and plan as outlined in original note. Please see immediately below for my summary of findings and additional assessment and plan along with any meaningful corrections/explanations to the Subjective/Objective portions of the ASIF note will be noted." My portion of the encounter took place via telemedicine. -Patient presented with allergic reaction to Macrobid, prescribed a for a UTI. Rash and nausea resolved in the ER after benadryl and steroids. Will admit to monitor. Ceftriaxone for UTI (pansensitive E coli on culture from 1 week ago)
[2024-12-30] MEDS ORDERED: BENADRYL 25 MG CAPSULE PO PRN (16:51)
[2024-12-30] MEDS: TYLENOL EXTRA STRENGTH 500 MG PO PRN (17:13)
[2024-12-30] MEDS ORDERED: MEDICATION INTERVENTION MC SCH (17:15)
[2024-12-30] MEDS: Lopressor 25MG Tab PO SCH (22:00)
[2024-12-31 06:05] LABS: BASOPHIL % 0.2 % (0.1-1.2); Basophil (Absolute #) 0.02 x10^3/uL (0.01-0.08); Eosinophil % 0.2 % (0.7-5.8); Eosinophil (Absolute #) 0.02 x10^3/uL (0.04-0.36); Hematocrit 27.9 % (34.1-44.9); Hemoglobin 9.2 g/dL (11.2-15.7); IMMATURE GRAN # 0.05 x10^3u/L (0.001-0.031); IMMATURE GRAN % 0.4 % (0.001-0.429); Lymphocyte (Absolute #) 1.27 x10^3/uL (1.18-3.74); Mean Cell Volume 94.6 fL (79.4-94.8); Mean Corpuscular Hemoglobin 31.2 pg (25.6-32.2); Mean Platelet Volume 9.9 fL (9.4-12.3); Monocyte (Absolute #) 0.73 x10^3/uL (0.24-0.86); Monocytes % 5.8 % (4.7-12.5); Neutrophil % 83.4 % (34.0-71.1); Platelet Count 187 x10^3/uL (182-369); Red Blood Count 2.95 x10^6/uL (3.93-5.22); Red Cell Distribution Width 13.5 % (11.7-14.4); White Blood Count 12.7 x10^3/uL (3.98-10.04)
[2024-12-31 06:24] LABS: ALBUMIN 3.2 g/dL (3.5-5.0); ANION GAP 12.7 MEQ/L (5-15); BILIRUBIN,TOTAL 0.6 mg/dL (0.2-1.3); Calcium 8.3 mg/dL (8.4-10.2); Creatinine 1 0.93 mg/dL (0.52-1.04); EST GLOMERULAR FILTRATION RATE 65.3 ML/MIN; MAGNESIUM 1.8 mg/dL (1.6-2.3); Potassium 4.2 mmol/L (3.5-5.1); Total Protein 5.5 g/dL (6.3-8.2)
[2024-12-31 07:29] VITALS: BP 122/56; TEMP 98
[2024-12-31 08:13] VITALS: PULSE 65; RESP 16; O2SAT 96
[2024-12-31] MEDS: THERAGRAN MULTIVITAMIN PO SCH (09:01)
[2024-12-31] MEDS: Calcium 500MG W/Vit D Tablet PO SCH (09:01)
[2024-12-31] MEDS: Protonix 40MG Tablet PO SCH (09:02)
[2024-12-31] MEDS: ESTRACE 1 MG PO SCH (09:02)
[2024-12-31] MEDS: Acidophilus TABLET PO SCH (09:02)
--- NOTE | 2024-12-31 09:50 | PCM.DS ---
Discharge Summary Date of Admission: 12/30/24 15:42 Date of Discharge: 12/31/24 Admitting Physician: LUCIANA VASQUEZ MD Primary Care Provider: JOHANNA LOVE Allergies Allergies Sulfa (Sulfonamide Antibiotics) Allergy (Intermediate, Verified 12/30/24 09:05) morphine Allergy (Unknown, Verified 12/30/24 09:05) nitrofurantoin [From Macrobid] Allergy (Verified 12/30/24 09:06) Hospital Summary - Hospital Course Hospital Course: 12/30/24 is a 74 year old female with PMHX of arrythmia, asthma, glaucoma, cataracts, OA, Ulcer, anxiety, depression, diverticulosis, TIA, Pacemaker, and chronic back pain. The patient reports experiencing dysuria for the past two weeks and was prescribed Macrobid one week ago but did not fill the prescription until recently. She took her first dose at 7 AM this morning and approximately one hour later developed itching, generalized weakness, nausea, vomiting (once), and a generalized rash. She denies chest pain, fever, chills, cough, headache, sore throat, or earache. She had a last bowel movement in the ER this morning. In the ER, she was treated with Solu-Medrol and Benadryl, resulting in resol ution of the rash. A recent urine culture was positive for E. coli, voss- sensitive. Ceftriaxone, initiated in the ER, will be continued. D-dimer was elevated at 3.20; however, a chest CT was negative for pulmonary embolism. IV fluids will be started for dehydration. Tylenol and a heating pad were provided for chronic back pain. 12/31/24 Pt sitting up in bed. She states she feels better and wants to d/c today. She has had no allergic reaction sxs overnight. She denies any further concerns at this time. Will continue to follow new OP. - Vitals & Intake/Output Vital Signs: Vital Signs Temperature 98 F 12/31/24 07:29 Pulse Rate 65 12/31/24 08:12 Respiratory Rate 16 12/31/24 08:12 Blood Pressure 122/56 12/31/24 07:29 O2 Sat by Pulse Oximetry 96 12/31/24 08:12 Intake & Output: Intake & Output 12/28/24 12/29/24 12/30/24 02/22/25 11:59 11:59 11:59 11:59 Intake Total 2562 Balance 2562 Weight 55.4 kg 53.8 kg - Lab Result Diagrams: 12/31/24 05:45 12/31/24 05:45 Lab Results-Last 24 Hrs: Lab Results-Last 24 Hours 12/30/24 12/30/24 12/30/24 Range/Units 09:13 10:01 10:01 WBC 9.0 (3.98-10.04) x10^3/uL RBC 4.31 (3.93-5.22) x10^6/uL Hgb 13.3 (11.2-15.7) g/dL Hct 40.2 (34.1-44.9) % MCV 93.3 (79.4-94.8) fL MCH 30.9 (25.6-32.2) pg MCHC 33.1 (32.2-35.5) g/dL RDW 13.1 (11.7-14.4) % Plt Count 304 (182-369) x10^3/uL MPV 9.7 (9.4-12.3) fL Gran % 50.8 (34.0-71.1) % Immature Gran % (Auto) 0.2 (0.001-0.429) % Nucleat RBC Rel Count 0.0 (0.00-0.2) % Eos # (Auto) 0.09 (0.04-0.36) x10^3/uL Immature Gran # (Auto) 0.02 (0.001-0.031) x10^3u/L Absolute Lymphs (auto) 3.80 H (1.18-3.74) x10^3/uL Absolute Monos (auto) 0.50 (0.24-0.86) x10^3/uL Absolute Nucleated RBC 0.00 (0.00-0.012) x10^3u/L Lymphocytes % 42.1 (19.3-51.7) % Monocytes % 5.5 (4.7-12.5) % Eosinophils % 1.0 (0.7-5.8) % Basophils % 0.4 (0.1-1.2) % Absolute Granulocytes 4.57 (1.56-6.13) x10^3/uL Basophils # 0.04 (0.01-0.08) x10^3/uL D-Dimer (0.0-0.50) mg/L Sodium 139 (135-145) mmol/L Potassium 5.0 (3.5-5.1) mmol/L Chloride 108 H (98-107) mmol/L Carbon Dioxide 19 L (22-30) mmol/L Anion Gap 16.9 H (5-15) MEQ/L BUN 22 H (7-17) mg/dL Creatinine 1.04 (0.52-1.04) mg/dL Estimated GFR 57.1 ML/MIN Glucose 129 H (74-106) mg/dL Lactic Acid (0.4-2.0) Calcium 9.1 (8.4-10.2) mg/dL Magnesium 1.9 (1.6-2.3) mg/dL Total Bilirubin 0.60 (0.2-1.3) mg/dL AST 47 H (14-36) U/L ALT 38 H (0-35) U/L Alkaline Phosphatase 90 (38-126) U/L Troponin I < 0.012 (0.000-0.033) ng/mL Serum Total Protein 6.0 L (6.3-8.2) g/dL Albumin 3.8 (3.5-5.0) g/dL Amylase 95 (30-110) U/L Lipase 219 (23-300) U/L Urine Color (Yellow) Urine Appearance (Clear) Urine pH (4.6-8.0) Ur Specific [place] (1.005-1.030) Urine Protein (Negative) Urine Glucose (UA) (Negative) mg/dL Urine Ketones (Negative) Urine Blood (Negative) Urine Nitrite (Negative) Urine Bilirubin (Negative) Urine Urobilinogen (0.2) mg/dL Ur Leukocyte Esterase (Negative) U Hyaline Cast (Auto) (0-2) /LPF Urine Microscopic RBC (0-5) /HPF Urine Microscopic WBC (0-5) /HPF Ur Epithelial Cells (None Seen) /HPF Urine Bacteria (None Seen) /HPF Urine Culture Reflexed (NO) 12/30/24 12/30/24 12/30/24 Range/Units 10:01 11:27 13:14 WBC (3.98-10.04) x10^3/uL RBC (3.93-5.22) x10^6/uL Hgb (11.2-15.7) g/dL Hct (34.1-44.9) % MCV (79.4-94.8) fL MCH (25.6-32.2) pg MCHC (32.2-35.5) g/dL RDW (11.7-14.4) % Plt Count (182-369) x10^3/uL MPV (9.4-12.3) fL Gran % (34.0-71.1) % Immature Gran % (Auto) (0.001-0.429) % Nucleat RBC Rel Count (0.00-0.2) % Eos # (Auto) (0.04-0.36) x10^3/uL Immature Gran # (Auto) (0.001-0.031) x10^3u/L Absolute Lymphs (auto) (1.18-3.74) x10^3/uL Absolute Monos (auto) (0.24-0.86) x10^3/uL Absolute Nucleated RBC (0.00-0.012) x10^3u/L Lymphocytes % (19.3-51.7) % Monocytes % (4.7-12.5) % Eosinophils % (0.7-5.8) % Basophils % (0.1-1.2) % Absolute Granulocytes (1.56-6.13) x10^3/uL Basophils # (0.01-0.08) x10^3/uL D-Dimer 3.20 H* (0.0-0.50) mg/L Sodium (135-145) mmol/L Potassium (3.5-5.1) mmol/L Chloride (98-107) mmol/L Carbon Dioxide (22-30) mmol/L Anion Gap (5-15) MEQ/L BUN (7-17) mg/dL Creatinine (0.52-1.04) mg/dL Estimated GFR ML/MIN Glucose (74-106) mg/dL Lactic Acid (0.4-2.0) Calcium (8.4-10.2) mg/dL Magnesium (1.6-2.3) mg/dL Total Bilirubin (0.2-1.3) mg/dL AST (14-36) U/L ALT (0-35) U/L Alkaline Phosphatase (38-126) U/L Troponin I 0.016 (0.000-0.033) ng/mL Serum Total Protein (6.3-8.2) g/dL Albumin (3.5-5.0) g/dL Amylase (30-110) U/L Lipase (23-300) U/L Urine Color Dark Yellow A (Yellow) Urine Appearance Clear (Clear) Urine pH 5.0 (4.6-8.0) Ur Specific [place] 1.015 (1.005-1.030) Urine Protein Trace A (Negative) Urine Glucose (UA) Negative (Negative) mg/dL Urine Ketones Negative (Negative) Urine Blood Negative (Negative) Urine Nitrite Positive A (Negative) Urine Bilirubin Negative (Negative) Urine Urobilinogen 0.2 (0.2) mg/dL Ur Leukocyte Esterase Trace A (Negative) U Hyaline Cast (Auto) 3-5 A (0-2) /LPF Urine Microscopic RBC 0-2 (0-5) /HPF Urine Microscopic WBC 6-10 A (0-5) /HPF Ur Epithelial Cells None Seen (None Seen) /HPF Urine Bacteria Moderate A (None Seen) /HPF Urine Culture Reflexed YES (NO) 12/30/24 12/30/24 12/31/24 Range/Units 13:26 17:25 05:45 WBC 12.7 H (3.98-10.04) x10^3/uL RBC 2.95 L (3.93-5.22) x10^6/uL Hgb 9.2 L D (11.2-15.7) g/dL Hct 27.9 L (34.1-44.9) % MCV 94.6 (79.4-94.8) fL MCH 31.2 (25.6-32.2) pg MCHC 33.0 (32.2-35.5) g/dL RDW 13.5 (11.7-14.4) % Plt Count 187 D (182-369) x10^3/uL MPV 9.9 (9.4-12.3) fL Gran % 83.4 H (34.0-71.1) % Immature Gran % (Auto) 0.4 (0.001-0.429) % Nucleat RBC Rel Count 0.0 (0.00-0.2) % Eos # (Auto) 0.02 L (0.04-0.36) x10^3/uL Immature Gran # (Auto) 0.05 H (0.001-0.031) x10^3u/L Absolute Lymphs (auto) 1.27 (1.18-3.74) x10^3/uL Absolute Monos (auto) 0.73 (0.24-0.86) x10^3/uL Absolute Nucleated RBC 0.00 (0.00-0.012) x10^3u/L Lymphocytes % 10.0 L (19.3-51.7) % Monocytes % 5.8 (4.7-12.5) % Eosinophils % 0.2 L (0.7-5.8) % Basophils % 0.2 (0.1-1.2) % Absolute Granulocytes 10.60 H (1.56-6.13) x10^3/uL Basophils # 0.02 (0.01-0.08) x10^3/uL D-Dimer (0.0-0.50) mg/L Sodium (135-145) mmol/L Potassium (3.5-5.1) mmol/L Chloride (98-107) mmol/L Carbon Dioxide (22-30) mmol/L Anion Gap (5-15) MEQ/L BUN (7-17) mg/dL Creatinine (0.52-1.04) mg/dL Estimated GFR ML/MIN Glucose (74-106) mg/dL Lactic Acid 1.4 (0.4-2.0) Calcium (8.4-10.2) mg/dL Magnesium (1.6-2.3) mg/dL Total Bilirubin (0.2-1.3) mg/dL AST (14-36) U/L ALT (0-35) U/L Alkaline Phosphatase (38-126) U/L Troponin I 0.015 (0.000-0.033) ng/mL Serum Total Protein (6.3-8.2) g/dL Albumin (3.5-5.0) g/dL Amylase (30-110) U/L Lipase (23-300) U/L Urine Color (Yellow) Urine Appearance (Clear) Urine pH (4.6-8.0) Ur Specific [place] (1.005-1.030) Urine Protein (Negative) Urine Glucose (UA) (Negative) mg/dL Urine Ketones (Negative) Urine Blood (Negative) Urine Nitrite (Negative) Urine Bilirubin (Negative) Urine Urobilinogen (0.2) mg/dL Ur Leukocyte Esterase (Negative) U Hyaline Cast (Auto) (0-2) /LPF Urine Microscopic RBC (0-5) /HPF Urine Microscopic WBC (0-5) /HPF Ur Epithelial Cells (None Seen) /HPF Urine Bacteria (None Seen) /HPF Urine Culture Reflexed (NO) 12/31/24 Range/Units 05:45 WBC (3.98-10.04) x10^3/uL RBC (3.93-5.22) x10^6/uL Hgb (11.2-15.7) g/dL Hct (34.1-44.9) % MCV (79.4-94.8) fL MCH (25.6-32.2) pg MCHC (32.2-35.5) g/dL RDW (11.7-14.4) % Plt Count (182-369) x10^3/uL MPV (9.4-12.3) fL Gran % (34.0-71.1) % Immature Gran % (Auto) (0.001-0.429) % Nucleat RBC Rel Count (0.00-0.2) % Eos # (Auto) (0.04-0.36) x10^3/uL Immature Gran # (Auto) (0.001-0.031) x10^3u/L Absolute Lymphs (auto) (1.18-3.74) x10^3/uL Absolute Monos (auto) (0.24-0.86) x10^3/uL Absolute Nucleated RBC (0.00-0.012) x10^3u/L Lymphocytes % (19.3-51.7) % Monocytes % (4.7-12.5) % Eosinophils % (0.7-5.8) % Basophils % (0.1-1.2) % Absolute Granulocytes (1.56-6.13) x10^3/uL Basophils # (0.01-0.08) x10^3/uL D-Dimer (0.0-0.50) mg/L Sodium 139 (135-145) mmol/L Potassium 4.2 (3.5-5.1) mmol/L Chloride 109 H (98-107) mmol/L Carbon Dioxide 22 (22-30) mmol/L Anion Gap 12.7 (5-15) MEQ/L BUN 20 H (7-17) mg/dL Creatinine 0.93 (0.52-1.04) mg/dL Estimated GFR 65.3 ML/MIN Glucose 94 (74-106) mg/dL Lactic Acid (0.4-2.0) Calcium 8.3 L (8.4-10.2) mg/dL Magnesium 1.8 (1.6-2.3) mg/dL Total Bilirubin 0.60 (0.2-1.3) mg/dL AST 80 H (14-36) U/L ALT 66 H (0-35) U/L Alkaline Phosphatase 93 (38-126) U/L Troponin I (0.000-0.033) ng/mL Serum Total Protein 5.5 L (6.3-8.2) g/dL Albumin 3.2 L (3.5-5.0) g/dL Amylase (30-110) U/L Lipase (23-300) U/L Urine Color (Yellow) Urine Appearance (Clear) Urine pH (4.6-8.0) Ur Specific [place] (1.005-1.030) Urine Protein (Negative) Urine Glucose (UA) (Negative) mg/dL Urine Ketones (Negative) Urine Blood (Negative) Urine Nitrite (Negative) Urine Bilirubin (Negative) Urine Urobilinogen (0.2) mg/dL Ur Leukocyte Esterase (Negative) U Hyaline Cast (Auto) (0-2) /LPF Urine Microscopic RBC (0-5) /HPF Urine Microscopic WBC (0-5) /HPF Ur Epithelial Cells (None Seen) /HPF Urine Bacteria (None Seen) /HPF Urine Culture Reflexed (NO) Micro Results-Entire Visit: Microbiology 12/30/24 11:27 Urine Culture - Preliminary Urine, Catheterized NO GROWTH TO DATE - Radiology Exams Ordered Rad Exams-Entire Visit: Radiology Procedures Category Date Time Status ABDOMEN AND PELVIS W/0 CONTRAS [CT] Stat Exams 12/30/24 09:15 Completed CHEST 1 VIEW (PORTABLE) Stat Exams 12/30/24 09:14 Completed CHEST WITH CONTRAST [CT] Stat Exams 12/30/24 10:29 Completed - Procedures and Test Procedures and Tests throughout Hospitalization: Therapy Orders & Screens 12/30/24 16:52 RT Screen per Nursing Assess ONCE Comment: Protocol Order Physician Instructions: Greater than 3 points order RT Admission Screen Reason For Exam: Triggered on Admission Diagnosis: Allergic reaction to Macrobid; Hypotension; UTI Diagnosis: Allergic reaction to Macrobid; Hypotension; UTI Pneumonia: No Home O2: No Asthma: Yes CHF: No Home CPAP/BIPAP: No Home Nebs/MDI: Yes Total Points: 9 12/30/24 18:00 EKG ROUTINE Comment: 12/31/24 07:00 Respiratory Therapy Assessment DAILY Comment: Diagnosis: Allergic reaction to Macrobid; Hypotension; UTI Discharge Exam General Appearance: no apparent distress, alert Neurologic Exam: alert, oriented x 3, cooperative, normal mood/affect, nml c erebellar function, sensation nml, No motor deficits Eye Exam: PERRL, EOMI, eyes nml inspection Ears, Nose, Throat Exam: normal ENT inspection, pharynx normal, moist mucous membranes Neck Exam: normal inspection, non-tender, supple, full range of motion Respiratory Exam: normal breath sounds, lungs clear, No respiratory distress Cardiovascular Exam: regular rate/rhythm, normal heart sounds Gastrointestinal/Abdomen Exam: soft, No tenderness, No mass Pelvic Exam: deferred Rectal Exam: deferred Back Exam: normal inspection, normal range of motion, No CVA tenderness, No ve rtebral tenderness Extremity Exam: normal inspection, normal range of motion Skin Exam: normal color, warm, dry Final Diagnosis/Problem List - Final Discharge Diagnosis/Problem (1) Urinary tract infection Current Visit: Yes Status: Acute Code(s): N39.0 - URINARY TRACT INFECTION, SITE NOT SPECIFIED (2) Allergic reaction caused by a drug Current Visit: Yes Status: Acute Code(s): T78.40XA - ALLERGY, UNSPECIFIED, INITIAL ENCOUNTER (3) Dehydration Current Visit: Yes Status: Acute Code(s): E86.0 - DEHYDRATION (4) Elevated d-dimer Current Visit: Yes Status: Acute Code(s): R79.89 - OTHER SPECIFIED ABNORMAL FINDINGS OF BLOOD CHEMISTRY (5) Chronic back pain Current Visit: Yes Status: Chronic Code(s): M54.9 - DORSALGIA, UNSPECIFIED; G89.29 - OTHER CHRONIC PAIN (6) HTN (hypertension) Current Visit: Yes Status: Chronic Code(s): I10 - ESSENTIAL (PRIMARY) HYPERTENSION (7) Constipation Current Visit: Yes Status: Resolved Assessment & Plan: (1) Urinary tract infection Current Visit: Yes Status: Acute Qualifiers: Encounter type: subsequent encounter Assessment & Plan: - previous UC voss-sensitive - repeat UC ordered in ER - Ceftriaxone IV - IVF - BC x2 pending 12/31 - d/c with cefuroxime - will continue to follow UC and BC X2 OP Code(s): N39.0 - URINARY TRACT INFECTION, SITE NOT SPECIFIED (2) Allergic reaction caused by a drug Current Visit: Yes Status: Acute Qualifiers: Encounter type: initial encounter Qualified Code(s): T78.40XA - Allergy, unspecified, initial encounter Assessment & Plan: - Solumerol, benadryl gave in ER - Rash resolved since admission - PRN meds if needed - caused by macrobid- added to allergy list - tele 12/31 - no overnight events Code(s): T78.40XA - ALLERGY, UNSPECIFIED, INITIAL ENCOUNTER (3) Dehydration Current Visit: Yes Status: Acute Assessment & Plan: - IVF Code(s): E86.0 - DEHYDRATION (4) Elevated d-dimer Current Visit: Yes Status: Acute Assessment & Plan: - d-dimer 3.20 - CT negative for PE Code(s): R79.89 - OTHER SPECIFIED ABNORMAL FINDINGS OF BLOOD CHEMISTRY (5) Chronic back pain Current Visit: Yes Status: Chronic Qualifiers: Back pain location: low back pain Back pain laterality: midline Sciatica presence: without sciatica Qualified Code(s): M54.50 - Low back pain, unspecified; G89.29 - Other chronic pain Assessment & Plan: - Tylenol as she takes at home - heating pad Code(s): M54.9 - DORSALGIA, UNSPECIFIED; G89.29 - OTHER CHRONIC PAIN (6) HTN (hypertension) Current Visit: Yes Status: Chronic Qualifiers: Hypertension type: primary hypertension Qualified Code(s): I10 - Essential (primary) hypertension Assessment & Plan: - BP stable - Continue home BP meds Code(s): I10 - ESSENTIAL (PRIMARY) HYPERTENSION (7) Constipation Current Visit: Yes Status: Resolved Qualifiers: Constipation type: chronic idiopathic constipation Qualified Code(s): K59.04 - Chronic idiopathic constipation Assessment & Plan: - resolved in ER - As seen on CT abd/pelvis Code(s): K59.00 - CONSTIPATION, UNSPECIFIED Code(s): K59.00 - CONSTIPATION, UNSPECIFIED - Discharge Discharge Date: 12/31/24 Disposition: Home, Self-Care Condition: Stable Prescriptions: Continue Pantoprazole 20 mg [Protonix 20MG Tablet] 40 mg PO DAILY estradioL [Estradiol] 0.5 mg PO DAILY Metoprolol Tartrate 75 mg PO BID Calcium Carb/Vit D3/Minerals [Calcium 600+D Plus Minerals Tb] 3 each PO DAILY Multivitamin 2 tab PO DAILY Cyanocobalamin (Vitamin B-12) [Vitamin B-12] 5,000 mcg PO DAILY Bacillus Coagulans/Inulin [Probiotic with Prebiotic Cap] 1 each PO DAILY Additional Instructions: Take benadryl OTC following label directions for any allergic reaction symptoms. Follow up with: JOHANNA LOVE NP [Primary Care Provider] -
[2024-12-31] MEDS ORDERED: NON-FORMULARY ITEM (Cyanocobalamin (Vitamin B-12) [Vitamin B-12] 5,000 MCG Capsule) PO SCH (10:00)
[2024-12-31] MEDS: ROCEPHIN 1 GM / 100 ML NaCl 1 GM/100 ML IVPB IV SCH (10:12)
== END 2024-12-31 11:07 | disposition home or self-care (01) ==
LOC: ED 08:58 → MED SURG 15:42
PROVIDERS: ADMIT Internal Medicine; ATTEND Internal Medicine
DX: N39.0 Urinary tract infection, site not specified (principal); B96.20 Unspecified Escherichia coli [E. coli] as the cause of diseases classified elsewhere; T37.8X5A Adverse effect of other specified systemic anti-infectives and antiparasitics, initial encounter; E86.0 Dehydration; R79.89 Other specified abnormal findings of blood chemistry; M54.9 Dorsalgia, unspecified; I10 Essential (primary) hypertension; K59.00 Constipation, unspecified; G89.29 Other chronic pain; Z79.899 Other long term (current) drug therapy
CPT/HCPCS: 36415; 36600; 71045; 71260; 74176; 80053; 81001; 82150; 82375; 82803; 83605; 83690; 83735; 84484; 85025; 85379; 87040; 87086; 93005; 93268; 94760; 96374; 96375; 99285; G0378; P9612; Q3014; J0696; J1200; J2405; J2919; A9270-GY